=== PATIENT | male | born 1965 | race African-American/Black ===

== ENCOUNTER 2023-08-25 10:15 | Outpatient (RCR) | payer OTHER, SELFPAY ==
[2023-08-18 10:19] VITALS: BP 146/71; PULSE 75; RESP 16; TEMP 37.1; BMI 25.0
--- NOTE | 2023-08-18 14:33 | PCM.WC.HP ---
History of Present Illness Date of Service: 08/18/23 Chief Complaint: Chronic venous insufficiency, varicose veins with inflammation and ulceration, venous hypertension with inflammation and ulceration, venous stasis ulcerations?lower extremities bilaterally History of Wound: This is a 58-year-old male who presents with severe venous disease in his lower extremities bilaterally. He does not speak Salvadorean. He is accompanied by a friend, who serves as an linen keeper. Medical records have been obtained from Dr. Ender Ruiz, vascular surgeon, which have been reviewed. It appears as though the patient has a longstanding history of venous disease in his lower extremities bilaterally. He has recently developed ulcerations near the medial malleoli bilaterally. Bleeding occurred from the ulceration near the left medial malleolus. Patient presented to an emergency department, where the bleeding site was stitched . Patient was referred to Dr. Ender Ruiz, who evaluated the patient, and subsequently performed ultrasound-guided injection sclerotherapy near the ulceration near the left medial malleolus in an effort to ameliorate the high venous pressure responsible for the ulceration and bleeding. According to the records reviewed, Dr. 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 The patient is active. He sleeps on a flat mattress. He denies a history of deep vein thrombosis. Patient is otherwise generally healthy. [facility] Medical History Chronic venous insufficiency Varicose veins with ulcer and inflammation Venous hypertension, chronic, with ulcer and inflammation Venous stasis ulcer Vital Signs Vital Signs Vital Signs: 08/18/23 10:19 Temperature 98.8 F Temperature Source Temporal Pulse Rate 75 Respiratory Rate 16 Blood Pressure 146/71 H Blood Pressure Mean 96 Blood Pressure Source Monitor Blood Pressure Position Sitting Blood Pressure Location Right Arm Oxygen Delivery Method Room Air Weight Weight: 154 lb 5.177 oz Body Mass Index (BMI) 25.0 Physical Exam Const alert, oriented x3, no apparent distress, average body habitus and well nourished Constitutional Narrative: The patient is a relatively normal body habitus, with a BMI of 24.8. General Appearance: cooperative, comfortable, well kempt and well developed Orientation / Consciousness: awake, oriented to person, oriented to place and oriented to time Exam Limitations: no limitations HEENT normocephalic, head/scalp atraumatic and hearing grossly normal bilaterally Head and Scalp: normal to inspection, normocephalic and atraumatic External Ear: external ears normal Eyes PERRL and EOMs intact bilaterally General Eye: normal appearance of both eyes Neck full ROM Resp normal respiratory effort, normal air movement, no retractions and no use of accessory muscles Effort and Inspection: able to speak in complete sentences Extremity no calf tenderness General Extremity: Negative for clubbing or cyanosis Skin Wound Narrative: Hyperpigmentation is noted in the gaiter areas bilaterally. Small venous ulceration is noted near the right medial malleolus. A large venous ulceration is noted near the left medial malleolus. Dimensions of each ulceration are documented elsewhere. The ulceration near the right medial malleolus is generally pink and healthy in appearance. The ulceration of the left medial malleolus demonstrates a rather large amount of nonviable and necrotic tissue. There is no overt sign of infection or cellulitis. Scattered varicosities are noted in the lower extremities bilaterally. No significant swelling is noted in the lower extremities bilaterally. Pedal pulses are bilaterally palpable. Neuro oriented x3, CN's II-XII intact bilaterally, moves all extremities and no focal motor deficits Sensorium / Orientation: awake, alert, oriented to person, oriented to place and oriented to time Psych Appearance: grossly normal and appropriate Attitude: calm Activity / Motor Behavior: appropriate eye contact Speech: normal speech Mood & Affect: euthymic mood Thought Process: normal thought process Thought Content: normal thought content Attention / Concentration: attention grossly intact Debridement Note Debridement Note Wound debrided: Right medial malleolus Laterality: Right Type of Debridement: Excisional debridement Anesthesia Used: 5% Lidocaine Gel and Cetacaine Depth: Down to and including healthy tissue and in the subcutaneous layer Percentage of wound debrided: 100 Instrument Used: 5mm curette Tissue Removed: Bioburden Severity: Fat Layer Exposed Amount of bleeding with debridement: Mild Bleeding Controlled with: Compression and gauze Patient tolerated procedure: Patient tolerated procedure well Post-Debridement Measurements and Additional Note: Post-Debridement Measurements/Treatment DELVIN - Nurse 1 - General Ulcer Assessment Start: 08/18/23 10:18 Freq: Status: Active Protocol: KATHYA Activity Type Activity Date Activity User E-sign Co-sign Detail Recorded Client Recorded Date Recorded By Document 08/18/23 10:19 Desktop 08/18/23 10:44 GM 08/18/23 10:19 WC - Today's Visit Information Type of service Initial Visit Arrival Mode Ambulatory Transfer Assistance None Patient Identification Verified (Name & Yes ) Patient Requires Transmission-Based No Precautions Height and Weight Height 5 ft 5.75 in Weight 154 lb 5.177 oz Weight in Pounds 154.3 lbs Weight Measurement Method Estimated by Patient Body Mass Index (BMI) 25.0 BMI Classification Overweight BSA - Jermaine 1.79 Vital Signs Temperature (97.8 F-99.1 F) 98.8 F Temperature Source Temporal Pulse Rate (60-100) 75 Pulse Location Monitor Respiratory Rate (12-18) 16 Respiratory rate source Observation Oxygen Delivery Method Room Air Blood Pressure (90/60-120/80) 146/71 H Blood Pressure Mean 96 Source Monitor Position Sitting Blood Pressure Location Right Arm Pain Scale: 0-10 Numeric Is Patient Pain Free? Yes Lower Extremity Assessment/ Foot Assessment/ Toe Nail Assessment Right -Claudication Assessment Rest Pain -Posterior Tibial Palpable Yes -Posterior Tibial Doppler Multiphasic -Dorsalis Pedis Palpable Yes -Dorsalis Pedis Doppler Multiphasic -Extremity Color Hyperpigmented -Hair Growth on Legs Yes -Hair Growth on Toes Yes -Temperature of Extremity Warm -Capillary Refill Less than 3 Seconds -Dependent Rubor No -Blanched when Elevated No -Lipodermatosclerosis No -Other Deformity No -Prior Foot Ulcer No -Charcot Joint No -Prior Amputation No -Thick No -Discolored No -Deformed No -Improper Length & Hygeine No Left -Claudication Assessment Rest Pain -Posterior Tibial Palpable Yes -Posterior Tibial Doppler Multiphasic -Dorsalis Pedis Palpable Yes -Dorsalis Pedis Doppler Multiphasic -Extremity Color Hyperpigmented -Hair Growth on Legs Yes -Hair Growth on Toes Yes -Temperature of Extremity Warm -Capillary Refill Less than 3 Seconds -Blanched when Elevated No -Other Deformity No -Prior Foot Ulcer No -Charcot Joint No -Prior Amputation No -Thick No -Discolored No -Deformed No -Improper Length & Hygeine No Communication Assessment Preferred language Professional Advisor Required Yes Name/Type of Classroom Technology Coach family Able to Read Yes Able to Write Yes Right Hearing Abillity Normal Left Hearing Abillity Normal Visual Assistive Devices None Teaching Assessment Barriers to Learning Non Salvadorean Speaking Readiness To Learn Good Willingness to Engage in Self Management High Activies Readiness to Engage in Self Management High Activities Culture/Tenriism/Grinding Wheel Inspector Cultural/Tenriism Needs that may affect No Treatment Plan Would you allow our hospital collision technician to No meet you for the purpose of spiritual/ emotional support? Grinding Wheel Inspector to contact place of anglican No WC - Nurse 1 - General Ulcer Measurement Start: 08/18/23 10:18 Freq: Status: Active Protocol: Activity Type Activity Date Activity User E-sign Co-sign Detail Recorded Client Recorded Date Recorded By Document 08/18/23 10:19 Desktop 08/18/23 10:44 08/18/23 10:19 Wound Center Nurse 1 #1 L Medial Ankle -Current Size (cm) - Length 2.5 -Current Size (cm) - Width 3.5 -Current Size (cm) - Depth 0.2 -Total Square Cm 8.75 -Epithelialization Small 1-33% -Tunneling No -Undermining/Tunneling No -Circular Undermining No -Exudate Amt Medium -Exudate Type Yellow/Green -Wound Margin Distinct, Outline Attached -Granulation Amt Medium (34-66%) -Granulation Quality Red -Necrosis Amt Medium (34-66%) -Necrotic Tissue Type Adherent Slough -Structure Exposed N/A -Texture (Irina-wound Skin Appearance) Assessed -Moisture (Irina-wound Skin Appearance) Assessed -Color (Irina-wound Skin Appearance) Assessed -Temperature (Irina-wound Skin No Abnormality Appearance) (Pt Warm) -Tenderness on Palpation (Irina-wound Yes Skin Appearance) -Ulcer Cleansing Soap and Water -Foul Odor after Cleansing No -Anesthetic Used 5% Lidocaine Gel # 2 R Medial Ankle -Current Size (cm) - Length 2.0 -Current Size (cm) - Width 1.2 -Current Size (cm) - Depth 1.0 -Total Square Cm 2.40 -Epithelialization Small 1-33% -Tunneling No -Undermining/Tunneling No -Circular Undermining No -Exudate Amt Medium -Exudate Type Yellow/Green -Wound Margin Distinct, Outline Attached -Granulation Amt Medium (34-66%) -Slough/Fibrin Yes -Necrosis Amt Large (67-100%) -Texture (Irina-wound Skin Appearance) Assessed -Moisture (Irina-wound Skin Appearance) Assessed -Color (Irina-wound Skin Appearance) Assessed -Temperature (Irina-wound Skin No Abnormality Appearance) (Pt Warm) -Tenderness on Palpation (Irina-wound No Skin Appearance) -Ulcer Cleansing Soap and Water -Foul Odor after Cleansing No -Anesthetic Used 5% Lidocaine Gel Lower Limb Edema Present No Right Calf (cm) 36.5 Right Ankle (cm) 23 Left Calf (cm) 37 Left Ankle (cm) 21.5 WC - Nurse 2 - General Ulcer CM Notes Start: 08/18/23 10:18 Freq: Status: Active Protocol: Activity Type Activity Date Activity User E-sign Co-sign Detail Recorded Client Recorded Date Recorded By Document 08/18/23 11:48 PL [id number] 08/18/23 11:50 PL 08/18/23 11:48 Wound Center Nurse 2 #1 L Medial Ankle -Time 10:52 -Correct Patient Yes -Correct Side, Site, Position Yes -Correct Procedure Yes -Procedure Performed Yes -Type of Procedure Debridement -Clinical Debridement Subcutaneous -Tissue Removed Subcutaneous -Post Debridement (cm) - Length 2.5 -Post Debridement (cm) - Width 3.5 -Post Debridement (cm) - Depth 0.1 -Total Square (Post) (cm) 8.75 -Area of Debridement (cm) - Length 2.5 -Area of Debridement (cm) - Width 3.5 -Total Square (Area) (cm) 8.75 -Tunneling No -Undermining/Tunneling No -Circular Undermining No -Wound/Ulcer Outcome Not Healed -Ulcer Cleansing Rinsed/ Irrigated with Saline -Foul Odor after Cleansing No -Bioengineered Tissue No -Bleeding Controlled with Pressure -Treatment Response Procedure Tolerated Well -Debridement - Subq, 1st 20sq cm No # 2 R Medial Ankle -Time 10:52 -Correct Patient Yes -Correct Side, Site, Position Yes -Correct Procedure Yes -Procedure Performed Yes -Type of Procedure Debridement -Clinical Debridement Subcutaneous -Tissue Removed Subcutaneous -Post Debridement (cm) - Length 2.0 -Post Debridement (cm) - Width 1.2 -Post Debridement (cm) - Depth 0.1 -Total Square (Post) (cm) 2.40 -Area of Debridement (cm) - Length 2.0 -Area of Debridement (cm) - Width 1.2 -Total Square (Area) (cm) 2.40 -Tunneling No -Undermining/Tunneling No -Circular Undermining No -Wound/Ulcer Outcome Not Healed -Ulcer Cleansing Rinsed/ Irrigated with Saline -Foul Odor after Cleansing No -Bioengineered Tissue No -Bleeding Controlled with Pressure -Treatment Response Procedure Tolerated Well -Debridement - Subq, 1st 20sq cm Yes Pain Scale: 0-10 Numeric Is Patient Pain Free? Yes WC - Nurse 3 - General Ulcer D/C NN Start: 08/18/23 10:18 Freq: Status: Active Protocol: Activity Type Activity Date Activity User E-sign Co-sign Detail Recorded Client Recorded Date Recorded By Document 08/18/23 11:37 RB Desktop 08/18/23 11:41 RB 08/18/23 11:37 Wound Care Center Nurse 3 #1 L Medial Ankle -Ulcer Cleansing Wound Cleanser -Primary Dressing Applied Hysept ($) -Primary Dressing Covered/Secured with Dry Gauze,Dry Gauze & Roll Gauze,Secured with Tape # 2 R Medial Ankle -Ulcer Cleansing Wound Cleanser -Primary Dressing Applied C Hydrogel ($) -Primary Dressing Covered/Secured with Dry Gauze,Dry Gauze & Roll Gauze,Secured with Tape Right -Tubular Bandage Single Layer -Size of Tubigrip Used Size D -Size D ($) 1 Left -Tubular Bandage Single Layer -Size of Tubigrip Used Size D -Size D ($) 1 Treatment Response Procedure Tolerated Well Pain Scale: 0-10 Numeric Is Patient Pain Free? Yes WC - Visit Discharge Discharge Condition Stable Ambulatory Status Ambulatory Transportation Private Auto Medication Reconcilliation completed & No provided to patient/care provider Clinical Summary of Care Provided Yes Additional Wound Wound debrided: Let medial malleolus Laterality: Left Type of Debridement: Excisional debridement Anesthesia Used: 5% Lidocaine Gel and Cetacaine Depth: Down to and including healthy tissue and in the subcutaneous layer Percentage of wound debrided: 100 Instrument Used: 5mm curette Tissue Removed: Bioburden and nonviable/necrotic tissue Severity: Fat Layer Exposed Amount of bleeding with debridement: Mild Bleeding Controlled with: Compression and gauze Patient tolerated procedure: Patient tolerated procedure well Assessment/Plan Assessment/Plan (1) Chronic venous insufficiency: CODE(S): I87.2 - Venous insufficiency (chronic) (peripheral) (2) Varicose veins with ulcer and inflammation: CODE(S): I83.209 - Varicose veins of unspecified lower extremity with both ulcer of unspecified site and inflammation; L97.909 - Non-pressure chronic ulcer of unspecified part of unspecified lower leg with unspecified severity (3) Venous hypertension, chronic, with ulcer and inflammation: CODE(S): I87.339 - Chronic venous hypertension (idiopathic) with ulcer and inflammation of unspecified lower extremity (4) Venous stasis ulcer: CODE(S): I83.009 - Varicose veins of unspecified lower extremity with ulcer of unspecified site; L97.909 - Non-pressure chronic ulcer of unspecified part of unspecified lower leg with unspecified severity PLAN: Plan This is a generally healthy 58-year-old male who is of normal body habitus. He presented with a longstanding history of venous disease in his lower extremities. He has recently developed venous ulcerations near the medial malleoli bilaterally. The ulceration of the left medial malleolus has recently bled, prompting the patient to seek medical attention. Initially, in the emergency department setting, a suture was placed at the bleeding site to control bleeding from the area. The patient was then referred to Dr. Ender Ruiz, vascular surgeon, who performed ultrasound-guided injection sclerotherapy in the venous network about the ulceration in an effort to enhance ulcer healing and mitigate further bleeding episodes. Patient has been referred for management relative to the ulcerations near the medial malleoli bilaterally. A lengthy discussion has been undertaken with the patient, through his linen keeper, regarding the appropriate lifestyle measures for management of his venous disease. Leg elevation has been recommended. The patient's legs are to be elevated to heart level, or higher, as much as possible. This is to be accomplished even during daytime hours. The patient is to continue sleeping on a flat mattress at night. Prolonged idle sitting has been discouraged. Activity has been encouraged. The patient's body weight is normal. We are to implement compression by means of Tubigrip's 20 to 30 mmHg compression, which are to be worn daily. They are to be donned each morning, and doffed at bedtime. We are to implement a protocol of collagen hydrogel topically to the venous ulceration to the right medial malleolus. This will be applied on a daily basis. Dakin's-moistened gauze will be applied topically to the ulceration near the left medial malleolus. This will be applied on a daily basis. The patient has been instructed in the appropriate means of application The patient is to follow-up in 1 week. Total time: 50 minutes
[2023-08-25 10:47] VITALS: BP 139/76; PULSE 90; RESP 18; TEMP 37.1; BMI 25.0
--- NOTE | 2023-08-25 11:21 | HP.PCM_ITS ---
History of Present Illness Date of Service: 08/25/23 Chief Complaint: Chronic venous insufficiency, varicose veins with inflammation and ulceration, venous hypertension with inflammation and ulceration, venous stasis ulcerations?lower extremities bilaterally History of Wound: This is a 58-year-old male who presents with severe venous disease in his lower extremities bilaterally. He does not speak [place]. He is accompanied by a friend, who serves as an merchandising internship. Medical records have been obtained from Dr. Ender Ruiz, vascular surgeon, which have been reviewed. It appears as though the patient has a longstanding history of venous disease in his lower extremities bilaterally. He has recently developed ulcerations near the medial malleoli bilaterally. Bleeding occurred from the ulceration near the left medial malleolus. Patient presented to an emergency department, where the bleeding site was stitched . Patient was referred to Dr. Ender Ruiz, who evaluated the patient, and subsequently performed ultrasound- guided injection sclerotherapy near the ulceration near the left medial malleolus in an effort to ameliorate the high venous pressure responsible for the ulceration and bleeding. According to the records reviewed, Dr. 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 The patient is active. He sleeps on a flat allen ress. He denies a history of deep vein thrombosis. Patient is otherwise generally healthy. [facility] Medical History (Updated 08/25/23 @ 11:[address] Zeus Salazar MD) Chronic venous insufficiency Varicose veins with ulcer and inflammation Venous hypertension, chronic, with ulcer and inflammation Venous stasis ulcer Venous stasis ulcer of left ankle Vital Signs Vital Signs Vital Signs: 08/25/23 10:47 Temperature 98.7 F Temperature Source Temporal Pulse Rate 90 Respiratory Rate 18 Blood Pressure 139/76 H Blood Pressure Mean 97 Blood Pressure Source Monitor Oxygen Delivery Method Room Air Weight Weight: 154 lb 5.177 oz Body Mass Index (BMI) 25.0 Physical Exam Const alert, oriented x3, no apparent distress, average body habitus and well nourished Constitutional Narrative: The patient is a relatively normal body habitus, with a BMI of 24.8. General Appearance: cooperative, comfortable, well kempt and well developed Orientation / Consciousness: awake, oriented to person, oriented to place and oriented to time Exam Limitations: no limitations HEENT normocephalic, head/scalp atraumatic and hearing grossly normal bilaterally Head and Scalp: normal to inspection, normocephalic and atraumatic External Ear: external ears normal Eyes PERRL and EOMs intact bilaterally General Eye: normal appearance of both eyes Neck full ROM Resp normal respiratory effort, normal air movement, no retractions and no use of accessory muscles Effort and Inspection: able to speak in complete sentences Extremity no calf tenderness General Extremity: Negative for clubbing or cyanosis Skin Wound Narrative: Hyperpigmentation and lipodermatosclerosis are noted in the gaiter areas bilaterally. A small venous ulceration is noted near the right medial malleolus. A large venous ulceration is noted near the left medial malleolus. Dimensions of each ulceration are documented elsewhere. The ulcerations both demonstrate a large amount of nonviable and necrotic tissue. There is no significant surrounding erythema. Scattered varicosities are noted in the lower extremities bilaterally, most notably on the medial calves. No significant swelling is noted in the lower extremities bilaterally. Pedal pulses are bilaterally palpable. Neuro oriented x3, CN's II-XII intact bilaterally, moves all extremities, no focal motor deficits and no sensory deficits noted Sensorium / Orientation: awake, alert, oriented to person, oriented to place and oriented to time Psych Appearance: grossly normal and appropriate Attitude: calm Activity / Motor Behavior: appropriate eye contact Speech: normal speech Mood & Affect: euthymic mood Thought Process: normal thought process Thought Content: normal thought content Attention / Concentration: attention grossly intact Debridement Note Debridement Note Wound debrided: Right medial malleolus Laterality: Right Type of Debridement: Excisional debridement Anesthesia Used: 5% Lidocaine Gel and Cetacaine Depth: Down to and including healthy tissue and in the subcutaneous layer Percentage of wound debrided: 100 Instrument Used: 5mm curette Tissue Removed: Bioburden Severity: Fat Layer Exposed Amount of bleeding with debridement: Mild Bleeding Controlled with: Compression and gauze Patient tolerated procedure: Patient tolerated procedure well Post-Debridement Measurements and Additional Note: Post-Debridement Measurements/Treatment DELVIN - Nurse 1 - General Ulcer Assessment Start: 08/18/23 10:18 Freq: Status: Active Protocol: KATHYA Activity Type Activity Date Activity User E-sign Co-sign Detail Recorded Client Recorded Date Recorded By Document 08/18/23 10:19 GM Desktop 08/18/23 10:44 GM Document 08/25/23 10:47 MT Desktop 08/25/23 10:58 MT 08/18/23 08/25/23 10:19 10:47 WC - Today's Visit Information Type of service Initial Visit Follow-up Visit (Physician/S[employer]IOR [employer]ER [employer]NER ) Arrival Mode Ambulatory Ambulatory Transfer Assistance None Accompanied by friend Patient Identification Verified (Name & Yes Yes ) Patient Requires Transmission-Based No Precautions Height and Weight Height 5 ft 5.75 in Weight 154 lb 5.177 oz Weight in Pounds 154.3 lbs Weight Measurement Method Estimated by Patient Body Mass Index (BMI) 25.0 25.0 BMI Classification Overweight Overweight BSA - Jermaine 1.79 Vital Signs Temperature (97.8 F-99.1 F) 98.8 F 98.7 F Temperature Source Temporal Temporal Pulse Rate (60-100) 75 90 Pulse Location Monitor Monitor Respiratory Rate (12-18) 16 18 Respiratory rate source Observation Observation Oxygen Delivery Method Room Air Room Air Blood Pressure (90/60-120/80) 146/71 H 139/76 H Blood Pressure Mean 96 97 Source Monitor Monitor Position Sitting Blood Pressure Location Right Arm History Since Last Visit- (Skip if this is Patient's initial visit) Left Footwear Regular Shoe Right Footwear Regular Shoe Pain Scale: 0-10 Numeric Is Patient Pain Free? Yes Yes Lower Extremity Assessment/ Foot Assessment/ Toe Nail Assessment Right -Claudication Assessment Rest Pain -Posterior Tibial Palpable Yes -Posterior Tibial Doppler Multiphasic -Dorsalis Pedis Palpable Yes -Dorsalis Pedis Doppler Multiphasic -Extremity Color Hyperpigmented -Hair Growth on Legs Yes -Hair Growth on Toes Yes -Temperature of Extremity Warm -Capillary Refill Less than 3 Seconds -Dependent Rubor No -Blanched when Elevated No -Lipodermatosclerosis No -Other Deformity No -Prior Foot Ulcer No -Charcot Joint No -Prior Amputation No -Thick No -Discolored No -Deformed No -Improper Length & Hygeine No Left -Claudication Assessment Rest Pain -Posterior Tibial Palpable Yes -Posterior Tibial Doppler Multiphasic -Dorsalis Pedis Palpable Yes -Dorsalis Pedis Doppler Multiphasic -Extremity Color Hyperpigmented -Hair Growth on Legs Yes -Hair Growth on Toes Yes -Temperature of Extremity Warm -Capillary Refill Less than 3 Seconds -Blanched when Elevated No -Other Deformity No -Prior Foot Ulcer No -Charcot Joint No -Prior Amputation No -Thick No -Discolored No -Deformed No -Improper Length & Hygeine No Communication Assessment Preferred language Chin Strap Sewer Required Yes Name/Type of Automotive Accessory Installer family Able to Read Yes Able to Write Yes Right Hearing Abillity Normal Left Hearing Abillity Normal Visual Assistive Devices None Teaching Assessment Barriers to Learning Non [place] Speaking Readiness To Learn Good Willingness to Engage in Self Management High Activies Readiness to Engage in Self Management High Activities Culture/Oriental Orthodox/Manager Hair Cultural/Oriental Orthodox Needs that may affect No Treatment Plan Would you allow our [facility] bit sander to No meet you for the purpose of spiritual/ emotional support? Manager Hair to contact place of moravian No WC - Nurse 1 - General Ulcer Measurement Start: 08/18/23 10:18 Freq: Status: Active Protocol: Activity Type Activity Date Activity User E-sign Co-sign Detail Recorded Client Recorded Date Recorded By Document 08/18/23 10:19 Desktop 08/18/23 10:44 GM Document 08/25/23 10:47 CO Desktop 08/25/23 10:58 CO 08/18/23 08/25/23 10:19 10:47 Wound Center Nurse 1 #1 L Medial Ankle -Current Size (cm) - Length 2.5 5.2 -Current Size (cm) - Width 3.5 4.6 -Current Size (cm) - Depth 0.2 0.2 -Total Square Cm 8.75 23.92 -Photo Taken No -Epithelialization Small 1-33% -Tunneling No No -Undermining/Tunneling No No -Circular Undermining No No -Exudate Amt Medium Small -Exudate Type Yellow/Green Purulent -Wound Margin Distinct, Flat & Intact Outline Attached -Granulation Amt Medium (34-66%) Small (1-33%) -Granulation Quality Red Pale,[place] -Necrosis Amt Medium (34-66%) Large (67-100%) -Necrotic Tissue Type Adherent Slough Adherent Slough -Structure Exposed N/A -Texture (Irina-wound Skin Appearance) Assessed Assessed -Moisture (Irina-wound Skin Appearance) Assessed Assessed -Color (Irina-wound Skin Appearance) Assessed Assessed -Temperature (Irina-wound Skin No Abnormality No Abnormality Appearance) (Pt Warm) (Pt Warm) -Tenderness on Palpation (Irina-wound Yes No Skin Appearance) -Ulcer Cleansing Soap and Water Rinsed/ Irrigated with Saline -Foul Odor after Cleansing No No -Anesthetic Used 5% Lidocaine 5% Lidocaine Gel Gel # 2 R Medial Ankle -Current Size (cm) - Length 2.0 2 -Current Size (cm) - Width 1.2 1.5 -Current Size (cm) - Depth 1.0 0.1 -Total Square Cm 2.40 3.0 -Photo Taken No -Epithelialization Small 1-33% -Tunneling No No -Undermining/Tunneling No No -Circular Undermining No No -Exudate Amt Medium Small -Exudate Type Yellow/Green Sanguineous -Wound Margin Distinct, Flat & Intact Outline Attached -Granulation Amt Medium (34-66%) Small (1-33%) -Granulation Quality Pale,[place] -Slough/Fibrin Yes -Necrosis Amt Large (67-100%) Large (67-100%) -Necrotic Tissue Type Adherent Slough -Texture (Irina-wound Skin Appearance) Assessed Assessed -Moisture (Irina-wound Skin Appearance) Assessed Assessed -Color (Irina-wound Skin Appearance) Assessed Assessed -Temperature (Irina-wound Skin No Abnormality No Abnormality Appearance) (Pt Warm) (Pt Warm) -Tenderness on Palpation (Irina-wound No No Skin Appearance) -Ulcer Cleansing Soap and Water Soap and Water -Foul Odor after Cleansing No No -Anesthetic Used 5% Lidocaine 5% Lidocaine Gel Gel Lower Limb Edema Present No NA Right Calf (cm) 36.5 Right Ankle (cm) 23 Left Calf (cm) 37 Left Ankle (cm) 21.5 WC - Nurse 2 - General Ulcer CM Notes Start: 08/18/23 10:18 Freq: Status: Active Protocol: Activity Type Activity Date Activity User E-sign Co-sign Detail Recorded Client Recorded Date Recorded By Document 08/18/23 11:48 PL [id number] 08/18/23 11:50 PL 08/18/23 11:48 Wound Center Nurse 2 #1 L Medial Ankle -Time 10:52 -Correct Patient Yes -Correct Side, Site, Position Yes -Correct Procedure Yes -Procedure Performed Yes -Type of Procedure Debridement -Clinical Debridement Subcutaneous -Tissue Removed Subcutaneous -Post Debridement (cm) - Length 2.5 -Post Debridement (cm) - Width 3.5 -Post Debridement (cm) - Depth 0.1 -Total Square (Post) (cm) 8.75 -Area of Debridement (cm) - Length 2.5 -Area of Debridement (cm) - Width 3.5 -Total Square (Area) (cm) 8.75 -Tunneling No -Undermining/Tunneling No -Circular Undermining No -Wound/Ulcer Outcome Not Healed -Ulcer Cleansing Rinsed/ Irrigated with Saline -Foul Odor after Cleansing No -Bioengineered Tissue No -Bleeding Controlled with Pressure -Treatment Response Procedure Tolerated Well -Debridement - Subq, 1st 20sq cm No # 2 R Medial Ankle -Time 10:52 -Correct Patient Yes -Correct Side, Site, Position Yes -Correct Procedure Yes -Procedure Performed Yes -Type of Procedure Debridement -Clinical Debridement Subcutaneous -Tissue Removed Subcutaneous -Post Debridement (cm) - Length 2.0 -Post Debridement (cm) - Width 1.2 -Post Debridement (cm) - Depth 0.1 -Total Square (Post) (cm) 2.40 -Area of Debridement (cm) - Length 2.0 -Area of Debridement (cm) - Width 1.2 -Total Square (Area) (cm) 2.40 -Tunneling No -Undermining/Tunneling No -Circular Undermining No -Wound/Ulcer Outcome Not Healed -Ulcer Cleansing Rinsed/ Irrigated with Saline -Foul Odor after Cleansing No -Bioengineered Tissue No -Bleeding Controlled with Pressure -Treatment Response Procedure Tolerated Well -Debridement - Subq, 1st 20sq cm Yes Pain Scale: 0-10 Numeric Is Patient Pain Free? Yes WC - Nurse 3 - General Ulcer D/C NN Start: 08/18/23 10:18 Freq: Status: Active Protocol: Activity Type Activity Date Activity User E-sign Co-sign Detail Recorded Client Recorded Date Recorded By Document 08/18/23 11:37 RB Desktop 08/18/23 11:41 RB 08/18/23 11:37 Wound Care Center Nurse 3 #1 L Medial Ankle -Ulcer Cleansing Wound Cleanser -Primary Dressing Applied Hysept ($) -Primary Dressing Covered/Secured with Dry Gauze,Dry Gauze & Roll Gauze,Secured with Tape # 2 R Medial Ankle -Ulcer Cleansing Wound Cleanser -Primary Dressing Applied C Hydrogel ($) -Primary Dressing Covered/Secured with Dry Gauze,Dry Gauze & Roll Gauze,Secured with Tape Right -Tubular Bandage Single Layer -Size of Tubigrip Used Size D -Size D ($) 1 Left -Tubular Bandage Single Layer -Size of Tubigrip Used Size D -Size D ($) 1 Treatment Response Procedure Tolerated Well Pain Scale: 0-10 Numeric Is Patient Pain Free? Yes WC - Visit Discharge Discharge Condition Stable Ambulatory Status Ambulatory Transportation Private Auto Medication Reconcilliation completed & No provided to patient/care provider Clinical Summary of Care Provided Yes Additional Wound Wound debrided: Let medial malleolus Laterality: Left Type of Debridement: Excisional debridement Anesthesia Used: 5% Lidocaine Gel and Cetacaine Depth: Down to and including healthy tissue and in the subcutaneous layer Percentage of wound debrided: 100 Instrument Used: 5mm curette Tissue Removed: Bioburden and nonviable/necrotic tissue Severity: Fat Layer Exposed Amount of bleeding with debridement: Mild Bleeding Controlled with: Compression and gauze Patient tolerated procedure: Patient tolerated procedure well Assessment/Plan Assessment/Plan (1) Chronic venous insufficiency: CODE(S): I87.2 - Venous insufficiency (chronic) (peripheral) (2) Varicose veins with ulcer and inflammation: CODE(S): I83.209 - Varicose veins of unspecified lower extremity with both ulcer of unspecified site and inflammation; L97.909 - Non-pressure chronic ulcer of unspecified part of unspecified lower leg with unspecified severity (3) Venous hypertension, chronic, with ulcer and inflammation: CODE(S): I87.339 - Chronic venous hypertension (idiopathic) with ulcer and inflammation of unspecified lower extremity (4) Venous stasis ulcer: CODE(S): I83.009 - Varicose veins of unspecified lower extremity with ulcer of unspecified site; L97.909 - Non-pressure chronic ulcer of unspecified part of unspecified lower leg with unspecified severity QUALIFIERS: Venous stasis ulcer site: ankle Laterality: right Non-pressure ulcer stage: with fat layer exposed (5) Venous stasis ulcer of left ankle: CODE(S): I83.023 - Varicose veins of left lower extremity with ulcer of ankle; L97.329 - Non-pressure chronic ulcer of left ankle with unspecified severity QUALIFIERS: Non-pressure ulcer stage: with fat layer exposed PLAN: Plan This is a generally healthy 58-year-old male who is of normal body habitus. He presented with a longstanding history of venous disease in his lower extremities. He has recently developed venous ulcerations near the medial malleoli bilaterally. The ulceration of the left medial malleolus has recently bled, prompting the patient to seek medical attention. Initially, in the emerge ncy department setting, a suture was placed at the bleeding site to control bleeding from the area. The patient was then referred to Dr. Ender Ruiz, vascular surgeon, who performed ultrasound-guided injection sclerotherapy in the venous network about the ulceration in an effort to enhance ulcer healing and mitigate further bleeding episodes. The patient has been referred for management relative to the ulcerations near the medial malleoli bilaterally. A lengthy discussion has been undertaken with the patient, through his merchandising internship, regarding the appropriate lifestyle measures for management of his venous disease. Leg elevation has been recommended. The patient's legs are to be elevated to heart level, or higher, as much as possible. This is to be accomplished even during daytime hours. The patient is to continue sleeping on a flat mattress at night. Prolonged idle sitting has been discouraged. Activity has been encouraged. The patient's body weight is normal. We are to continue compression by means of Tubigrip's 20 to 30 mmHg compression, which are to be worn daily. The patient has been provided a prescription for graduated compression stockings of 20 to 30 mmHg, knee-high length. Once these have been obtained at a local medical supply store, these are to be worn daily. The patient claims to have a current pair of compression stockings, and has been advised to bring with him to his next appointment so they can be evaluated as to their appropriateness for his current needs. We are to transition to the use of collagenase Santyl topically to each of the ulcerations, which will be applied on a daily basis topically. The patient has been given a prescription for the collagenase Santyl. He has been instructed in the appropriate means of application. A coupon has been provided to mitigate the high cost of the product. Swab cultures have been obtained of the left medial ankle ulceration, for both aerobic and anaerobic bacterial growth. Results of the cultures will be awaited, with response predicated upon those results. The patient is to follow-up in 1 week. The patient has been encouraged to elevate his legs is much as possible. He typically works 10 hours/day, typically 5 days/week. These long hours in a standing position are felt to be detrimental to the healing process, as his bilateral lower extremity ulcerations appear to be due to his longstanding venous disease. Total time: 28 minutes
== END 2023-08-27 23:59 | disposition home or self-care (01) ==
LOC: WC 10:15
PROVIDERS: Referring Provider Surgery Vascular Surgery; Visit Provider Surgery
DX: I83.223 Varicose veins of left lower extremity with both ulcer of ankle and inflammation (principal); L97.312 Non-pressure chronic ulcer of right ankle with fat layer exposed; L97.322 Non-pressure chronic ulcer of left ankle with fat layer exposed; I83.213 Varicose veins of right lower extremity with both ulcer of ankle and inflammation
CPT/HCPCS: 11042; 11045; 87070; 87075; 87077; 87186; 87205; 99213; G0463

== ENCOUNTER 2023-09-23 10:15 | Outpatient (RCR) | payer OTHER, SELFPAY ==
[2023-08-28 00:26] VITALS: BP 139/76; PULSE 90; RESP 18; TEMP 37.1; BMI 25.0
[2023-09-01 11:02] VITALS: BP 152/79; PULSE 76; RESP 16; TEMP 36.4; BMI 25.0
--- NOTE | 2023-09-01 12:57 | HP.PCM_ITS ---
History of Present Illness Date of Service: 09/01/23 Chief Complaint: Chronic venous insufficiency, varicose veins with inflammation and ulceration, venous hypertension with inflammation and ulceration, venous stasis ulcerations?lower extremities bilaterally History of Wound: This is a 58-year-old male who presents with severe venous disease in his lower extremities bilaterally. He does not speak Italian. He is accompanied by a friend, who serves as an certified court interpreter. Medical records have been obtained from Dr. Ender Ruiz, vascular surgeon, which have been reviewed. It appears as though the patient has a longstanding history of venous disease in his lower extremities bilaterally. He has recently developed ulcerations near the medial malleoli bilaterally. Bleeding occurred from the ulceration near the left medial malleolus. Patient presented to an emergency department, where the bleeding site was stitched . Patient was referred to Dr. Ender Ruiz, who evaluated the patient, and subsequently performed ultrasound- guided injection sclerotherapy near the ulceration near the left medial malleolus in an effort to ameliorate the high venous pressure responsible for the ulceration and bleeding. According to the records reviewed, Dr. 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 The patient is active. He sleeps on a flat allen ress. He denies a history of deep vein thrombosis. Patient is otherwise generally healthy. [facility] Medical History Chronic venous insufficiency Varicose veins with ulcer and inflammation Venous hypertension, chronic, with ulcer and inflammation Venous stasis ulcer Venous stasis ulcer of left ankle Vital Signs Vital Signs Vital Signs: 09/01/23 11:02 Temperature 97.6 F L Temperature Source Temporal Pulse Rate 76 Respiratory Rate 16 Blood Pressure 152/79 H Blood Pressure Mean 103 Blood Pressure Source Monitor Blood Pressure Position Sitting Blood Pressure Location Left Arm Oxygen Delivery Method Room Air Weight Weight: 154 lb 5.177 oz Body Mass Index (BMI) 25.0 Physical Exam Const alert, oriented x3, no apparent distress, average body habitus and well nourished Constitutional Narrative: The patient is a relatively normal body habitus, with a BMI of 24.8. General Appearance: cooperative, comfortable, well kempt and well developed Orientation / Consciousness: awake, oriented to person, oriented to place and oriented to time Exam Limitations: no limitations HEENT normocephalic, head/scalp atraumatic and hearing grossly normal bilaterally Head and Scalp: normal to inspection, normocephalic and atraumatic External Ear: external ears normal Eyes PERRL and EOMs intact bilaterally General Eye: normal appearance of both eyes Neck full ROM Resp normal respiratory effort, normal air movement, no retractions and no use of accessory muscles Effort and Inspection: able to speak in complete sentences Extremity no calf tenderness General Extremity: Negative for clubbing or cyanosis Skin Wound Narrative: Hyperpigmentation and lipodermatosclerosis are noted in the gaiter areas bilaterally. A small venous ulceration is noted near the right medial malleolus. A large venous ulceration is noted near the left medial malleolus. Dimensions of each ulceration are documented elsewhere. The ulcerations both demonstrate a large amount of nonviable and necrotic tissue. There is no significant surrounding erythema. There has been no significant improvement since the week prior. Scattered varicosities are noted in the lower extremities bilaterally, most notably on the medial calves. No significant swelling is noted in the lower extremities bilaterally. Pedal pulses are bilaterally palpable. Neuro oriented x3, CN's II-XII intact bilaterally, moves all extremities, no focal motor deficits and no sensory deficits noted Sensorium / Orientation: awake, alert, oriented to person, oriented to place and oriented to time Psych Appearance: grossly normal and appropriate Attitude: calm Activity / Motor Behavior: appropriate eye contact Speech: normal speech Mood & Affect: euthymic mood Thought Process: normal thought process Thought Content: normal thought content Attention / Concentration: attention grossly intact Debridement Note Debridement Note Wound debrided: Right medial malleolus Laterality: Right Type of Debridement: Excisional debridement Anesthesia Used: 5% Lidocaine Gel and Cetacaine Depth: Down to and including healthy tissue and in the subcutaneous layer Percentage of wound debrided: 100 Instrument Used: 5mm curette Tissue Removed: Bioburden Severity: Fat Layer Exposed Amount of bleeding with debridement: Mild Bleeding Controlled with: Compression and gauze Patient tolerated procedure: Patient tolerated procedure well Post-Debridement Measurements and Additional Note: Post-Debridement Measurements/Treatment DELVIN - Nurse 1 - General Ulcer Assessment Start: 09/01/23 11:02 Freq: Status: Active Protocol: KATHYA Activity Type Activity Date Activity User E-sign Co-sign Detail Recorded Client Recorded Date Recorded By Document 09/01/23 11:02 [employer] 09/01/23 11:12 09/01/23 11:02 WC - Today's Visit Information Type of service Follow-up Visit (Physician/BOARD LAYER ) Arrival Mode Ambulatory Transfer Assistance None Accompanied by friend Patient Identification Verified (Name & Yes ) Patient Requires Transmission-Based No Precautions Safety Precautions NA Height and Weight Body Mass Index (BMI) 25.0 BMI Classification Overweight Vital Signs Temperature (97.8 F-99.1 F) 97.6 F L Temperature Source Temporal Pulse Rate (60-100) 76 Pulse Location Monitor Respiratory Rate (12-18) 16 Respiratory rate source Observation Oxygen Delivery Method Room Air Blood Pressure (90/60-120/80) 152/79 H Blood Pressure Mean 103 Source Monitor Position Sitting Blood Pressure Location Left Arm History Since Last Visit- (Skip if this is Patient's initial visit) Have you changed medications since your No last visit? Any new allergies or adverse reactions No Had a fall/change in ADL's that may No increase risk of falls Signs or symptoms of abuse and/or No neglect since last visit Have you been in the hospital since your No last visit? Has dressing in place as prescribed Yes Has compression in place as prescribed N/A Has offloadiing in place as prescribed N/A Experienced any changes in pain level or No management Left Footwear Regular Shoe Right Footwear Regular Shoe Pain Scale: 0-10 Numeric Is Patient Pain Free? Yes - Nurse 1 - General Ulcer Measurement Start: 09/01/23 11:02 Freq: Status: Active Protocol: Activity Type Activity Date Activity User E-sign Co-sign Detail Recorded Client Recorded Date Recorded By Document 09/01/23 11:02 [email or web address] 09/01/23 11:12 09/01/23 11:02 Wound Center Nurse 1 #1 L Medial Ankle -Combined with other wound No -Current Size (cm) - Length 5.7 -Current Size (cm) - Width 4.4 -Current Size (cm) - Depth 0.1 -Total Square Cm 25.08 -Photo Taken No -Tunneling No -Undermining/Tunneling No -Circular Undermining No -Exudate Amt Medium -Exudate Type Serosanguineous -Wound Margin Flat & Intact -Granulation Amt None Present (0 %) -Granulation Quality N/A -Slough/Fibrin Yes -Necrosis Amt Large (67-100%) -Necrotic Tissue Type Adherent Slough -Structure Exposed N/A -Texture (Irina-wound Skin Appearance) Assessed, Localized Edema -Moisture (Irina-wound Skin Appearance) Assessed -Color (Irina-wound Skin Appearance) Assessed, Hemosiderin Staining -Temperature (Irina-wound Skin No Abnormality Appearance) (Pt Warm) -Tenderness on Palpation (Irina-wound No Skin Appearance) -Ulcer Cleansing Soap and Water -Foul Odor after Cleansing No -Anesthetic Used 4% Lidocaine Solution,5% Lidocaine Gel # 2 R Medial Ankle -Combined with other wound No -Current Size (cm) - Length 2.2 -Current Size (cm) - Width 1.5 -Current Size (cm) - Depth 0.1 -Total Square Cm 3.30 -Photo Taken No -Epithelialization None Present -Tunneling No -Undermining/Tunneling No -Circular Undermining No -Exudate Amt Medium -Exudate Type Serosanguineous -Wound Margin Flat & Intact -Granulation Amt None Present (0 %) -Granulation Quality N/A -Slough/Fibrin Yes -Necrosis Amt Large (67-100%) -Necrotic Tissue Type Adherent Slough -Structure Exposed N/A -Texture (Irina-wound Skin Appearance) Assessed, Localized Edema -Moisture (Irina-wound Skin Appearance) Assessed -Color (Irina-wound Skin Appearance) Assessed, Hemosiderin Staining Lower Limb Edema Present Yes Right Calf (cm) 36.5 Right Ankle (cm) 22.0 Left Calf (cm) 37.0 Left Ankle (cm) 23.5 WC - Nurse 2 - General Ulcer CM Notes Start: 09/01/23 11:02 Freq: Status: Active Protocol: Activity Type Activity Date Activity User E-sign Co-sign Detail Recorded Client Recorded Date Recorded By Document 09/01/23 12:54 PL [id number] 09/01/23 12:56 PL 09/01/23 12:54 Wound Center Nurse 2 #1 L Medial Ankle -Time 11:21 -Correct Patient Yes -Correct Side, Site, Position Yes -Correct Procedure Yes -Procedure Performed Yes -Type of Procedure Debridement -Clinical Debridement Subcutaneous -Tissue Removed Subcutaneous -Post Debridement (cm) - Length 5.7 -Post Debridement (cm) - Width 4.4 -Post Debridement (cm) - Depth 0.1 -Total Square (Post) (cm) 25.08 -Area of Debridement (cm) - Length 5.7 -Area of Debridement (cm) - Width 4.4 -Total Square (Area) (cm) 25.08 -Tunneling No -Undermining/Tunneling No -Circular Undermining No -Wound/Ulcer Outcome Not Healed -Ulcer Cleansing Rinsed/ Irrigated with Saline -Foul Odor after Cleansing No -Bioengineered Tissue No -Bleeding Controlled with Pressure -Treatment Response Procedure Tolerated Well -Debridement - Subq, 1st 20sq cm No # 2 R Medial Ankle -Time 11:21 -Correct Patient Yes -Correct Side, Site, Position Yes -Correct Procedure Yes -Procedure Performed Yes -Type of Procedure Debridement -Clinical Debridement Subcutaneous -Tissue Removed Subcutaneous -Post Debridement (cm) - Length 2.2 -Post Debridement (cm) - Width 1.5 -Post Debridement (cm) - Depth 0.1 -Total Square (Post) (cm) 3.30 -Area of Debridement (cm) - Length 2.2 -Area of Debridement (cm) - Width 1.5 -Total Square (Area) (cm) 3.30 -Tunneling No -Undermining/Tunneling No -Circular Undermining No -Wound/Ulcer Outcome Not Healed -Ulcer Cleansing Rinsed/ Irrigated with Saline -Foul Odor after Cleansing No -Bioengineered Tissue No -Bleeding Controlled with Pressure -Treatment Response Procedure Tolerated Well -Debridement - Subq, 1st 20sq cm Yes -Debridement, SubQ, ea addt'l 20sq cm 1 or part thereof Pain Scale: 0-10 Numeric Is Patient Pain Free? Yes - Nurse 3 - General Ulcer D/C NN Start: 09/01/23 11:02 Freq: Status: Active Protocol: Activity Type Activity Date Activity User E-sign Co-sign Detail Recorded Client Recorded Date Recorded By Document 09/01/23 11:38 RB Desktop 09/01/23 11:41 RB 09/01/23 11:38 Wound Care Center Nurse 3 #1 L Medial Ankle -Primary Dressing Applied C Hydrogel ($) -Primary Dressing Covered/Secured with Dry Gauze,Dry Gauze & Roll Gauze,Secured with Tape # 2 R Medial Ankle -Ulcer Cleansing Rinsed/ Irrigated with Saline -Other Dressing hydrogel -Primary Dressing Covered/Secured with Dry Gauze,Dry Gauze & Roll Gauze,Secured with Tape Right -Tubular Bandage Single Layer -Size of Tubigrip Used Size D -Size D ($) 1 Left -Tubular Bandage Single Layer -Size of Tubigrip Used Size D -Size D ($) 1 Treatment Response Procedure Tolerated Well Pain Scale: 0-10 Numeric Is Patient Pain Free? Yes WC - Visit Discharge Discharge Condition Stable Ambulatory Status Ambulatory Transportation Private Auto Medication Reconcilliation completed & No provided to patient/care provider Clinical Summary of Care Provided Yes Additional Wound Wound debrided: Let medial malleolus Laterality: Left Type of Debridement: Excisional debridement Anesthesia Used: 5% Lidocaine Gel and Cetacaine Depth: Down to and including healthy tissue and in the subcutaneous layer Percentage of wound debrided: 100 Instrument Used: 5mm curette Tissue Removed: Bioburden and nonviable/necrotic tissue Severity: Fat Layer Exposed Amount of bleeding with debridement: Mild Bleeding Controlled with: Compression and gauze Patient tolerated procedure: Patient tolerated procedure well Assessment/Plan Assessment/Plan (1) Chronic venous insufficiency: CODE(S): I87.2 - Venous insufficiency (chronic) (peripheral) (2) Varicose veins with ulcer and inflammation: CODE(S): I83.209 - Varicose veins of unspecified lower extremity with both ulcer of unspecified site and inflammation; L97.909 - Non-pressure chronic ulcer of unspecified part of unspecified lower leg with unspecified severity (3) Venous hypertension, chronic, with ulcer and inflammation: CODE(S): I87.339 - Chronic venous hypertension (idiopathic) with ulcer and inflammation of unspecified lower extremity QUALIFIERS: Laterality: bilateral Qualified Code(s): I87.333 - Chronic venous hypertension (idiopathic) with ulcer and inflammation of bilateral lower extremity (4) Venous stasis ulcer: CODE(S): I83.009 - Varicose veins of unspecified lower extremity with ulcer of unspecified site; L97.909 - Non-pressure chronic ulcer of unspecified part of unspecified lower leg with unspecified severity QUALIFIERS: Venous stasis ulcer site: ankle Laterality: right Non-pressure ulcer stage: with fat layer exposed (5) Venous stasis ulcer of left ankle: CODE(S): I83.023 - Varicose veins of left lower extremity with ulcer of ankle; L97.329 - Non-pressure chronic ulcer of left ankle with unspecified severity QUALIFIERS: Non-pressure ulcer stage: with fat layer exposed Varicose vein presence: with varicose veins Qualified Code(s): I83.023 - Varicose veins of left lower extremity with ulcer of ankle; L97.322 - Non- pressure chronic ulcer of left ankle with fat layer exposed PLAN: Plan This is a generally healthy 58-year-old male who is of normal body habitus. He presented with a longstanding history of venous disease in his lower extremities. He has recently developed venous ulcerations near the medial malleoli bilaterally. The ulceration of the left medial malleolus has recently bled, prompting the patient to seek medical attention. Initially, in the emergency department setting, a suture was placed at the bleeding site to control bleeding from the area. The patient was then referred to Dr. Ender Ruiz, vascular surgeon, who performed ultrasound-guided injection sclerotherapy in the venous network about the ulceration in an effort to enhance ulcer healing and mitigate further bleeding episodes. The patient has been referred for management relative to the ulcerations near the medial malleoli bilaterally. A lengthy discussion has been undertaken with the patient, through his certified court interpreter, regarding the appropriate lifestyle measures for management of his venous disease. Leg elevation has been recommended. The patient's legs are to be elevated to heart level, or higher, as much as possible. This is to be accomplished even during daytime hours. The patient is to continue sleeping on a flat mattress at night. Prolonged idle sitting has been discouraged. Activity has been encouraged. The patient's body weight is normal. We are to continue compression by means of Tubigrip's 20 to 30 mmHg compression, which are to be worn daily. The patient has been provided a prescription for graduated compression stockings of 20 to 30 mmHg, knee-high length, which have been ordered, and are awaited. Once these have been obtained at a local medical supply store, these are to be worn daily. We are to transition to the use of collagenase Santyl topically to each of the ulcerations, which will be applied on a daily basis topically. The patient has been given a prescription for the collagenase Santyl. He has been instructed in the appropriate means of application. A coupon has been provided to mitigate the high cost of the product. The patient lost the coupon, so there has been a delay in obtaining the collagenase Santyl. Once obtained, it will be applied topically on a daily basis. Swab cultures have been obtained of the left medial ankle ulceration, for both aerobic and anaerobic bacterial growth. Results have been reviewed, and are positive for Pseudomonas aeruginosa. Based upon sensitivity results, the patient has been prescribed Cipro 500 mg p.o. twice daily for 10 days. Due to issues at the patient's local pharmacy, he continues to await the filling of this prescription. He has been encouraged to obtain the antibiotic, and to initiate without delay. The patient is to follow-up in 1 week. The patient has been encouraged to elevate his legs is much as possible. He typically works 10 hours/day, typically 5 days/week. These long hours in a standing position are felt to be detrimental to the healing process, as his bilateral lower extremity ulcerations appear to be due to his venous disease. Total time: 26 minutes
[2023-09-08 09:45] VITALS: BP 164/64; PULSE 83; RESP 18; TEMP 36.4; BMI 25.0
--- NOTE | 2023-09-08 11:31 | HP.PCM_ITS ---
History of Present Illness Date of Service: 09/08/23 Chief Complaint: Chronic venous insufficiency, varicose veins with inflammation and ulceration, venous hypertension with inflammation and ulceration, venous stasis ulcerations?lower extremities bilaterally History of Wound: This is a 58-year-old male who presented with severe venous disease in his lower extremities bilaterally. He does not speak Armenian. He was accompanied by a friend, who serves as an inventory control assistant. Medical records have been obtained from Dr. Ender Ruiz, vascular surgeon, which have been reviewed. It appears as though the patient has a longstanding history of venous disease in his lower extremities bilaterally. He has recently developed ulcerations near the medial malleoli bilaterally. Bleeding occurred from the ulceration near the left medial malleolus. Patient presented to an emergency department, where the bleeding site was stitched . Patient was referred to Dr. Ender Ruiz, who evaluated the patient, and subsequently performed ultrasound- guided injection sclerotherapy near the ulceration near the left medial malleolus in an effort to ameliorate the high venous pressure responsible for the ulceration and bleeding. According to the records reviewed, Dr. 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 The patient is active. He sleeps on a flat ma ttress. He denies a history of deep vein thrombosis. Patient is otherwise generally healthy. [facility] Medical History Chronic venous insufficiency Varicose veins with ulcer and inflammation Venous hypertension, chronic, with ulcer and inflammation Venous stasis ulcer Venous stasis ulcer of left ankle Vital Signs Vital Signs Vital Signs: 09/08/23 09:45 Temperature 97.6 F L Temperature Source Temporal Pulse Rate 83 Respiratory Rate 18 Blood Pressure 164/64 H Blood Pressure Mean 97 Blood Pressure Source Monitor Blood Pressure Position Semi-Fowlers Blood Pressure Location Left Arm Weight Weight: 154 lb 5.177 oz Body Mass Index (BMI) 25.0 Physical Exam Const alert, oriented x3, no apparent distress, average body habitus and well nourished Constitutional Narrative: The patient is a relatively normal body habitus, with a BMI of 24.8. General Appearance: cooperative, comfortable, well kempt and well developed Orientation / Consciousness: awake, oriented to person, oriented to place and oriented to time Exam Limitations: no limitations HEENT normocephalic, head/scalp atraumatic and hearing grossly normal bilaterally Head and Scalp: normal to inspection, normocephalic and atraumatic External Ear: external ears normal Eyes PERRL and EOMs intact bilaterally General Eye: normal appearance of both eyes Neck full ROM Resp normal respiratory effort, normal air movement, no retractions and no use of accessory muscles Effort and Inspection: able to speak in complete sentences Extremity no calf tenderness General Extremity: Negative for clubbing or cyanosis Skin Wound Narrative: Hyperpigmentation and lipodermatosclerosis are noted in the gaiter areas bilaterally. A small venous ulceration is noted near the right medial malleolus. A large venous ulceration is noted near the left medial malleolus. Dimensions of each ulceration are documented elsewhere. The ulcerations both demonstrate a moderate amount of nonviable and necrotic tissue. However, there has been improvement over the last several weeks. There is no significant surrounding erythema. Scattered varicosities are noted in the lower extremities bilaterally, most notably on the medial calves. No significant swelling is noted in the lower extremities bilaterally. Pedal pulses are bilaterally palpable. Neuro oriented x3, CN's II-XII intact bilaterally, moves all extremities, no focal motor deficits and no sensory deficits noted Sensorium / Orientation: awake, alert, oriented to person, oriented to place and oriented to time Psych Appearance: grossly normal and appropriate Attitude: calm Activity / Motor Behavior: appropriate eye contact Speech: normal speech Mood & Affect: euthymic mood Thought Process: normal thought process Thought Content: normal thought content Attention / Concentration: attention grossly intact Debridement Note Debridement Note Wound debrided: Right medial malleolus Laterality: Right Type of Debridement: Excisional debridement Anesthesia Used: 5% Lidocaine Gel and Cetacaine Depth: Down to and including healthy tissue and in the subcutaneous layer Percentage of wound debrided: 100 Instrument Used: 5mm curette Tissue Removed: Bioburden Severity: Fat Layer Exposed Amount of bleeding with debridement: Mild Bleeding Controlled with: Compression and gauze Patient tolerated procedure: Patient tolerated procedure well Post-Debridement Measurements and Additional Note: Post-Debridement Measurements/Treatment DELVIN - Nurse 1 - General Ulcer Assessment Start: 09/01/23 11:02 Freq: Status: Active Protocol: KATHYA Activity Type Activity Date Activity User E-sign Co-sign Detail Recorded Client Recorded Date Recorded By Document 09/01/23 11:02 MW Desktop 09/01/23 11:12 MW Document 09/08/23 09:45 RB Desktop 09/08/23 09:47 RB 09/01/23 09/08/23 11:02 09:45 - Today's Visit Information Type of service Follow-up Visit Follow-up Visit (Physician/LARGE ANIMAL HUSBANDRY TECHNICIAN (Physician/LARGE ANIMAL HUSBANDRY TECHNICIAN ) ) Arrival Mode Ambulatory Ambulatory Transfer Assistance None None Accompanied by friend Patient Identification Verified (Name & Yes Yes ) Patient Requires Transmission-Based No No Precautions Safety Precautions NA Height and Weight Body Mass Index (BMI) 25.0 25.0 BMI Classification Overweight Overweight Vital Signs Temperature (97.8 F-99.1 F) 97.6 F L 97.6 F L Temperature Source Temporal Temporal Pulse Rate (60-100) 76 83 Pulse Location Monitor Monitor Respiratory Rate (12-18) 16 18 Respiratory rate source Observation Observation Oxygen Delivery Method Room Air Blood Pressure (90/60-120/80) 152/79 H 164/64 H Blood Pressure Mean 103 97 Source Monitor Monitor Position Sitting Semi-Fowlers Blood Pressure Location Left Arm Left Arm History Since Last Visit- (Skip if this is Patient's initial visit) Have you changed medications since your No No last visit? Any new allergies or adverse reactions No No Had a fall/change in ADL's that may No No increase risk of falls Signs or symptoms of abuse and/or No No neglect since last visit Have you been in the hospital since your No No last visit? Has dressing in place as prescribed Yes Yes Has compression in place as prescribed N/A Yes Has offloadiing in place as prescribed N/A No Experienced any changes in pain level or No No management Left Footwear Regular Shoe Right Footwear Regular Shoe Pain Scale: 0-10 Numeric Is Patient Pain Free? Yes No - Nurse 1 - General Ulcer Measurement Start: 09/01/23 11:02 Freq: Status: Active Protocol: Activity Type Activity Date Activity User E-sign Co-sign Detail Recorded Client Recorded Date Recorded By Document 09/01/23 11:02 MW Desktop 09/01/23 11:12 MW Document 09/08/23 09:45 RB Desktop 09/08/23 09:47 RB 09/01/23 09/08/23 11:02 09:45 Wound Center Nurse 1 #1 L Medial Ankle -Combined with other wound No No -Current Size (cm) - Length 5.7 5 -Current Size (cm) - Width 4.4 3.5 -Current Size (cm) - Depth 0.1 0.1 -Total Square Cm 25.08 17.5 -Photo Taken No -Tunneling No No -Undermining/Tunneling No No -Circular Undermining No No -Exudate Amt Medium Medium -Exudate Type Serosanguineous Serosanguineous -Wound Margin Flat & Intact Distinct, Outline Attached -Granulation Amt None Present (0 Medium (34-66%) %) -Granulation Quality N/A [place] -Slough/Fibrin Yes Yes -Necrosis Amt Large (67-100%) Medium (34-66%) -Necrotic Tissue Type Adherent Slough Adherent Slough -Structure Exposed N/A N/A -Texture (Irina-wound Skin Appearance) Assessed, Assessed Localized Edema -Moisture (Irina-wound Skin Appearance) Assessed Assessed -Color (Irina-wound Skin Appearance) Assessed, Hemosiderin Hemosiderin Staining Staining -Temperature (Irina-wound Skin No Abnormality No Abnormality Appearance) (Pt Warm) (Pt Warm) -Tenderness on Palpation (Irina-wound No No Skin Appearance) -Ulcer Cleansing Soap and Water Wound Cleanser -Foul Odor after Cleansing No No -Anesthetic Used 4% Lidocaine 4% Lidocaine Solution,5% Solution,5% Lidocaine Gel Lidocaine Gel # 2 R Medial Ankle -Combined with other wound No No -Current Size (cm) - Length 2.2 2.3 -Current Size (cm) - Width 1.5 1.5 -Current Size (cm) - Depth 0.1 0.2 -Total Square Cm 3.30 3.45 -Photo Taken No -Epithelialization None Present -Tunneling No No -Undermining/Tunneling No No -Circular Undermining No No -Exudate Amt Medium Medium -Exudate Type Serosanguineous Serosanguineous -Wound Margin Flat & Intact Distinct, Outline Attached -Granulation Amt None Present (0 Medium (34-66%) %) -Granulation Quality N/A Hyper- granulation -Slough/Fibrin Yes Yes -Necrosis Amt Large (67-100%) Large (67-100%) -Necrotic Tissue Type Adherent Slough Adherent Slough -Structure Exposed N/A N/A -Texture (Irina-wound Skin Appearance) Assessed, Assessed Localized Edema -Moisture (Irina-wound Skin Appearance) Assessed Assessed -Color (Irina-wound Skin Appearance) Assessed, Hemosiderin Hemosiderin Staining Staining -Temperature (Irina-wound Skin No Abnormality Appearance) (Pt Warm) -Tenderness on Palpation (Irina-wound No Skin Appearance) -Ulcer Cleansing Wound Cleanser -Foul Odor after Cleansing No -Anesthetic Used 4% Lidocaine Solution,5% Lidocaine Gel Lower Limb Edema Present Yes Yes Right Calf (cm) 36.5 36.5 Right Ankle (cm) 22.0 22.7 Left Calf (cm) 37.0 37 Left Ankle (cm) 23.5 22 WC - Nurse 2 - General Ulcer CM Notes Start: 09/01/23 11:02 Freq: Status: Active Protocol: Activity Type Activity Date Activity User E-sign Co-sign Detail Recorded Client Recorded Date Recorded By Document 09/01/23 12:54 PL [id number] 09/01/23 12:56 PL 09/01/23 12:54 Wound Center Nurse 2 #1 L Medial Ankle -Time 11:21 -Correct Patient Yes -Correct Side, Site, Position Yes -Correct Procedure Yes -Procedure Performed Yes -Type of Procedure Debridement -Clinical Debridement Subcutaneous -Tissue Removed Subcutaneous -Post Debridement (cm) - Length 5.7 -Post Debridement (cm) - Width 4.4 -Post Debridement (cm) - Depth 0.1 -Total Square (Post) (cm) 25.08 -Area of Debridement (cm) - Length 5.7 -Area of Debridement (cm) - Width 4.4 -Total Square (Area) (cm) 25.08 -Tunneling No -Undermining/Tunneling No -Circular Undermining No -Wound/Ulcer Outcome Not Healed -Ulcer Cleansing Rinsed/ Irrigated with Saline -Foul Odor after Cleansing No -Bioengineered Tissue No -Bleeding Controlled with Pressure -Treatment Response Procedure Tolerated Well -Debridement - Subq, 1st 20sq cm No # 2 R Medial Ankle -Time 11:21 -Correct Patient Yes -Correct Side, Site, Position Yes -Correct Procedure Yes -Procedure Performed Yes -Type of Procedure Debridement -Clinical Debridement Subcutaneous -Tissue Removed Subcutaneous -Post Debridement (cm) - Length 2.2 -Post Debridement (cm) - Width 1.5 -Post Debridement (cm) - Depth 0.1 -Total Square (Post) (cm) 3.30 -Area of Debridement (cm) - Length 2.2 -Area of Debridement (cm) - Width 1.5 -Total Square (Area) (cm) 3.30 -Tunneling No -Undermining/Tunneling No -Circular Undermining No -Wound/Ulcer Outcome Not Healed -Ulcer Cleansing Rinsed/ Irrigated with Saline -Foul Odor after Cleansing No -Bioengineered Tissue No -Bleeding Controlled with Pressure -Treatment Response Procedure Tolerated Well -Debridement - Subq, 1st 20sq cm Yes -Debridement, SubQ, ea addt'l 20sq cm 1 or part thereof Pain Scale: 0-10 Numeric Is Patient Pain Free? Yes WC - Nurse 3 - General Ulcer D/C NN Start: 09/01/23 11:02 Freq: Status: Active Protocol: Activity Type Activity Date Activity User E-sign Co-sign Detail Recorded Client Recorded Date Recorded By Document 09/01/23 11:38 RB Desktop 09/01/23 11:41 RB Document 09/08/23 11:14 RB Desktop 09/08/23 11:16 RB 09/01/23 09/08/23 11:38 11:14 Wound Care Center Nurse 3 #1 L Medial Ankle -Ulcer Cleansing Wound Cleanser -Primary Dressing Applied C Hydrogel ($) -Other Dressing hydrogel -Primary Dressing Covered/Secured with Dry Gauze,Dry Dry Gauze & Gauze & Roll Roll Gauze, Gauze,Secured Secured with with Tape Tape # 2 R Medial Ankle -Ulcer Cleansing Rinsed/ Wound Cleanser Irrigated with Saline -Other Dressing hydrogel hydrogel -Primary Dressing Covered/Secured with Dry Gauze,Dry Dry Gauze & Gauze & Roll Roll Gauze, Gauze,Secured Secured with with Tape Tape Right -Tubular Bandage Single Layer Single Layer -Size of Tubigrip Used Size D Size D -Size D ($) 1 1 Left -Tubular Bandage Single Layer Single Layer -Size of Tubigrip Used Size D Size D -Size D ($) 1 1 Treatment Response Procedure Procedure Tolerated Well Tolerated Well Pain Scale: 0-10 Numeric Is Patient Pain Free? Yes Yes Teaching: Wound Center Compression Wraps & Stockings -Person Taught Patient -Teaching Method Discussion, Demonstration -Response to teaching Verbalize understanding Dressing Your Wound -Person Taught Patient -Teaching Method Discussion, Demonstration -Response to teaching Verbalize understanding WC - Visit Discharge Discharge Condition Stable Stable Ambulatory Status Ambulatory Ambulatory Transportation Private Auto Private Auto Medication Reconcilliation completed & No No provided to patient/care provider Clinical Summary of Care Provided Yes Yes Additional Wound Wound debrided: Let medial malleolus Laterality: Left Type of Debridement: Excisional debridement Anesthesia Used: 5% Lidocaine Gel and Cetacaine Depth: Down to and including healthy tissue and in the subcutaneous layer Percentage of wound debrided: 100 Instrument Used: 5mm curette Tissue Removed: Bioburden and nonviable/necrotic tissue Severity: Fat Layer Exposed Amount of bleeding with debridement: Mild Bleeding Controlled with: Compression and gauze Patient tolerated procedure: Patient tolerated procedure well Assessment/Plan Assessment/Plan (1) Chronic venous insufficiency: CODE(S): I87.2 - Venous insufficiency (chronic) (peripheral) (2) Varicose veins with ulcer and inflammation: CODE(S): I83.209 - Varicose veins of unspecified lower extremity with both ulcer of unspecified site and inflammation; L97.909 - Non-pressure chronic ulcer of unspecified part of unspecified lower leg with unspecified severity (3) Venous hypertension, chronic, with ulcer and inflammation: CODE(S): I87.339 - Chronic venous hypertension (idiopathic) with ulcer and inflammation of unspecified lower extremity QUALIFIERS: Laterality: bilateral Qualified Code(s): I87.333 - Chronic venous hypertension (idiopathic) with ulcer and inflammation of bilateral lower extremity (4) Venous stasis ulcer: CODE(S): I83.009 - Varicose veins of unspecified lower extremity with ulcer of unspecified site; L97.909 - Non-pressure chronic ulcer of unspecified part of unspecified lower leg with unspecified severity QUALIFIERS: Venous stasis ulcer site: ankle Laterality: right Non-pressure ulcer stage: with fat layer exposed (5) Venous stasis ulcer of left ankle: CODE(S): I83.023 - Varicose veins of left lower extremity with ulcer of ankle; L97.329 - Non-pressure chronic ulcer of left ankle with unspecified severity QUALIFIERS: Varicose vein presence: with varicose veins Non-pressure ulcer stage: with fat layer exposed Qualified Code(s): I83.023 - Varicose veins of left lower extremity with ulcer of ankle; L97.322 - Non- pressure chronic ulcer of left ankle with fat layer exposed PLAN: Plan This is a generally healthy 58-year-old male who is of normal body habitus. He presented with a longstanding history of venous disease in his lower extremities. He has recently developed venous ulcerations near the medial malleoli bilaterally. The ulceration of the left medial malleolus has recently bled, prompting the patient to seek medical attention. Initially, in the emergency department setting, a suture was placed at the bleeding site to control bleeding from the area. The patient was then referred to Dr. Ender Ruiz, vascular surgeon, who performed ultrasound-guided injection sclerotherapy in the venous network about the ulceration in an effort to enhance ulcer healing and mitigate further bleeding episodes. The patient has been referred for management relative to the ulcerations near the medial malleoli bilaterally. A lengthy discussion has been undertaken with the patient, through his inventory control assistant, regarding the appropriate lifestyle measures for management of his venous disease. Leg elevation has been recommended. The patient's legs are to be elevated to heart level, or higher, as much as possible. This is to be accomplished even during daytime hours. The patient is to continue sleeping on a flat mattress at night. Prolonged idle sitting has been discouraged. Activity has been encouraged. The patient's body weight is normal. We are to continue compression by means of Tubigrip's 20 to 30 mmHg compression, which are to be worn daily. The patient has been provided a prescription for graduated compression stockings of 20 to 30 mmHg, knee-high length, which have been ordered, and are awaited. Once these have been obtained at a local medical supply store, these are to be worn daily. We are to continue the use of collagenase Santyl topically to each of the ulcerations, which will be applied on a daily basis topically. The patient has been given a prescription for the collagenase Santyl. He has been instructed in the appropriate means of application. A coupon has been provided to mitigate the high cost of the product. Once obtained, it will be applied topically on a daily basis. Swab cultures have been obtained of the left medial ankle ulceration, for both aerobic and anaerobic bacterial growth. Results have been reviewed, and were positive for Pseudomonas aeruginosa. Based upon sensitivity results, the patient was prescribed Cipro 500 mg p.o. twice daily for 10 days, which is nearly completed. The patient has been encouraged to elevate his legs is much as possible. He typically works 10 hours/day, typically 5 days/week. These long hours in a standing position are felt to be detrimental to the healing process, as his bilateral lower extremity ulcerations appear to be due to his venous disease. The patient has an appointment to follow-up with Dr. Ender Ruiz for further management of his chronic venous insufficiency. Given that t he patient speaks Italian, with little understanding of Armenian, the patient's care is to be transferred to a Wound Center provider who is fluent in Italian. This measure is expected to facilitate interactions and communications in the best interest of the patient's care. Total time: 26 minutes
[2023-09-16 10:17] VITALS: BP 136/72; PULSE 85; RESP 16; TEMP 36.4; BMI 25.0
--- NOTE | 2023-09-16 11:06 | PCM.WC.PN ---
History of Present Illness Date of Service: 09/16/23 Chief Complaint: Chronic venous insufficiency, varicose veins with inflammation and ulceration, venous hypertension with inflammation and ulceration, venous stasis ulcerations?lower extremities bilaterally History of Wound: This is a 58-year-old male who presented with severe venous disease in his lower extremities bilaterally. He does not speak Armenian. He was accompanied by a friend, who serves as an teacher adventure education. Medical records have been obtained from Dr. Ender Ruiz, vascular surgeon, which have been reviewed. It appears as though the patient has a longstanding history of venous disease in his lower extremities bilaterally. He has recently developed ulcerations near the medial malleoli bilaterally. Bleeding occurred from the ulceration near the left medial malleolus. Patient presented to an emergency department, where the bleeding site was stitched . Patient was referred to Dr. Ender Ruiz, who evaluated the patient, and subsequently performed ultrasound-guided injection sclerotherapy near the ulceration near the left medial malleolus in an effort to ameliorate the high venous pressure responsible for the ulceration and bleeding. According to the records reviewed, Dr. 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 The patient is active. He sleeps on a flat mattress. He denies a history of deep vein thrombosis. Patient is otherwise generally healthy. Subjective Subjective Mr. Radha Musa is a 58-year-old male presenting to the wound care center today for new evaluation with Dr. Carrington for bilateral lower extremity venous stasis ulcerations. Patient has been doing home dressing changes with Santyl dry sterile dressing and single layer compression wrap. He does follow-up with Dr. Ruiz who is his vascular surgeon. He will be following up with him this week for evaluation and imaging studies of his bilateral lower extremities to making sure that his stents are patent. He admits that he is having pain to the right ankle greater than left. He denies any new onset of trauma. He denies constitutional symptoms. No other pedal complaints at this time. Objective Data Objective Data Vital Signs: Vital Signs Temp Pulse Resp BP O2 Del Method 97.6 F L 85 16 136/72 H Room Air 09/16/23 10:17 09/16/23 10:09/16/23 10:17 09/16/23 10:17 09/01/23 11:02 Oxygen Delivery Method Room Air Weight: 70 kg Body Mass Index (BMI) 25.0 Physical Exam Narrative Vascular: DP and PT pulses are palpable. CFT is brisk. Nonpitting edema appreciated to the bilateral lower extremity. Evidence of palpable calcifications appreciated to the bilateral legs. Neurological: Light touch intact. Patient response to painful stimuli. Dermatological: Nonpitting edema appreciated bilateral lower extremity with blanchable erythema. No sign of infection. The right full-thickness ulceration measures 3.0 x 1.5 x 0.1 cm. The left lower extremity full-thickness ulceration measures 3.5 x 3.0 x 0.1 cm. Both wounds are granular nature with no sign of infection. Excisional debridement down to and including subcutaneous tissue with a number 5 mm dermal curette to the right medial ankle wound without incident. Predebridement measurement is 2.8 x 1.3 x 0.1 cm. Postdebridement measurement is 3.0 x 1.5 x 0.1 cm. Excisional debridement down to and including subcutaneous tissue with number 5 mm dermal curette to the left medial ankle without incident. Predebridement measurement is 3.3 x 2.8 x 0.1 cm. Postdebridement measurement is 3.5 x 3.0 x 0.1 cm. Musculoskeletal: No strength 5 out of 5 in all quadrants bilateral. Mild to moderate palpatory tenderness appreciated to the right full-thickness ulceration. Mild palpatory tenderness appreciated to the left full-thickness ulceration. No. Calf pressure. Debridement Note Debridement Note Debridement Free Text: Excisional debridement down to and including subcutaneous tissue with a number 5 mm dermal curette to the right medial ankle wound without incident. Predebridement measurement is 2.8 x 1.3 x 0.1 cm. Postdebridement measurement is 3.0 x 1.5 x 0.1 cm. Excisional debridement down to and including subcutaneous tissue with number 5 mm dermal curette to the left medial ankle without incident. Predebridement measurement is 3.3 x 2.8 x 0.1 cm. Postdebridement measurement is 3.5 x 3.0 x 0.1 cm. Post-Debridement Measurements and Additional Note: Post-Debridement Measurements/Treatment WC - Nurse 1 - General Ulcer Assessment Start: 09/01/23 11:02 Freq: Status: Active Protocol: DELVIN.LOWEXT Activity Type Activity Date Activity User E-sign Co-sign Detail Recorded Client Recorded Date Recorded By Document 09/01/23 11:02 MW Desktop 09/01/23 11:12 MW Document 09/08/23 09:45 RB Desktop 09/08/23 09:47 RB Document 09/16/23 10:17 PL Tablet 09/16/23 10:20 PL 09/01/23 09/08/23 09/16/23 11:02 09:45 10:17 WC - Today's Visit Information Type of service Follow-up Visit Follow-up Visit Follow-up Visit (Physician/PEDIATRIC PHYSIATRIST (Physician/PEDIATRIC PHYSIATRIST (Physician/PEDIATRIC PHYSIATRIST ) ) ) Arrival Mode Ambulatory Ambulatory Ambulatory Transfer Assistance None None None Accompanied by friend Patient Identification Verified (Name & Yes Yes Yes ) Patient Requires Transmission-Based No No No Precautions Safety Precautions NA NA Height and Weight Body Mass Index (BMI) 25.0 25.0 25.0 BMI Classification Overweight Overweight Overweight Vital Signs Temperature (97.8 F-99.1 F) 97.6 F L 97.6 F L 97.6 F L Temperature Source Temporal Temporal Temporal Pulse Rate (60-100) 76 83 85 Pulse Location Monitor Monitor Respiratory Rate (12-18) 16 18 16 Respiratory rate source Observation Observation Oxygen Delivery Method Room Air Blood Pressure (90/60-120/80) 152/79 H 164/64 H 136/72 H Blood Pressure Mean (mm Hg) 103 97 93 Source Monitor Monitor Position Sitting Semi-Fowlers Blood Pressure Location Left Arm Left Arm History Since Last Visit- (Skip if this is Patient's initial visit) Have you changed medications since your No No No last visit? Any new allergies or adverse reactions No No No Had a fall/change in ADL's that may No No No increase risk of falls Signs or symptoms of abuse and/or No No No neglect since last visit Have you been in the hospital since your No No No last visit? Has dressing in place as prescribed Yes Yes Yes Has compression in place as prescribed N/A Yes Yes Has offloadiing in place as prescribed N/A No N/A Experienced any changes in pain level or No No No management Left Footwear Regular Shoe Right Footwear Regular Shoe Pain Scale: 0-10 Numeric Is Patient Pain Free? Yes No Yes WC - Nurse 1 - General Ulcer Measurement Start: 09/01/23 11:02 Freq: Status: Active Protocol: Activity Type Activity Date Activity User E-sign Co-sign Detail Recorded Client Recorded Date Recorded By Document 09/01/23 11:02 MW Desktop 09/01/23 11:12 MW Document 09/08/23 09:45 RB Desktop 09/08/23 09:47 RB 09/01/23 09/08/23 11:02 09:45 Wound Center Nurse 1 #1 L Medial Ankle -Combined with other wound No No -Current Size (cm) - Length 5.7 5 -Current Size (cm) - Width 4.4 3.5 -Current Size (cm) - Depth 0.1 0.1 -Total Square Cm 25.08 17.5 -Photo Taken No -Tunneling No No -Undermining/Tunneling No No -Circular Undermining No No -Exudate Amt Medium Medium -Exudate Type Serosanguineous Serosanguineous -Wound Margin Flat & Intact Distinct, Outline Attached -Granulation Amt None Present (0 Medium (34-66%) %) -Granulation Quality N/A [place] -Slough/Fibrin Yes Yes -Necrosis Amt Large (67-100%) Medium (34-66%) -Necrotic Tissue Type Adherent Slough Adherent Slough -Structure Exposed N/A N/A -Texture (Irina-wound Skin Appearance) Assessed, Assessed Localized Edema -Moisture (Irina-wound Skin Appearance) Assessed Assessed -Color (Irina-wound Skin Appearance) Assessed, Hemosiderin Hemosiderin Staining Staining -Temperature (Irina-wound Skin No Abnormality No Abnormality Appearance) (Pt Warm) (Pt Warm) -Tenderness on Palpation (Irina-wound No No Skin Appearance) -Ulcer Cleansing Soap and Water Wound Cleanser -Foul Odor after Cleansing No No -Anesthetic Used 4% Lidocaine 4% Lidocaine Solution,5% Solution,5% Lidocaine Gel Lidocaine Gel # 2 R Medial Ankle -Combined with other wound No No -Current Size (cm) - Length 2.2 2.3 -Current Size (cm) - Width 1.5 1.5 -Current Size (cm) - Depth 0.1 0.2 -Total Square Cm 3.30 3.45 -Photo Taken No -Epithelialization None Present -Tunneling No No -Undermining/Tunneling No No -Circular Undermining No No -Exudate Amt Medium Medium -Exudate Type Serosanguineous Serosanguineous -Wound Margin Flat & Intact Distinct, Outline Attached -Granulation Amt None Present (0 Medium (34-66%) %) -Granulation Quality N/A Hyper- granulation -Slough/Fibrin Yes Yes -Necrosis Amt Large (67-100%) Large (67-100%) -Necrotic Tissue Type Adherent Slough Adherent Slough -Structure Exposed N/A N/A -Texture (Irina-wound Skin Appearance) Assessed, Assessed Localized Edema -Moisture (Irina-wound Skin Appearance) Assessed Assessed -Color (Irina-wound Skin Appearance) Assessed, Hemosiderin Hemosiderin Staining Staining -Temperature (Irina-wound Skin No Abnormality Appearance) (Pt Warm) -Tenderness on Palpation (Irina-wound No Skin Appearance) -Ulcer Cleansing Wound Cleanser -Foul Odor after Cleansing No -Anesthetic Used 4% Lidocaine Solution,5% Lidocaine Gel Lower Limb Edema Present Yes Yes Right Calf (cm) 36.5 36.5 Right Ankle (cm) 22.0 22.7 Left Calf (cm) 37.0 37 Left Ankle (cm) 23.5 22 WC - Nurse 2 - General Ulcer CM Notes Start: 09/01/23 11:02 Freq: Status: Active Protocol: Activity Type Activity Date Activity User E-sign Co-sign Detail Recorded Client Recorded Date Recorded By Document 09/01/23 12:54 PL [id number] 09/01/23 12:56 PL Document 09/08/23 12:19 PL [id number] 09/08/23 12:28 PL Document 09/16/23 10:38 Laptop 09/16/23 10:43 09/01/23 09/08/23 09/16/23 12:54 12:19 10:38 Wound Center Nurse 2 #1 L Medial Ankle -Time 11:21 10:01 10:38 -Correct Patient Yes Yes Yes -Correct Side, Site, Position Yes Yes Yes -Correct Procedure Yes Yes Yes -Procedure Performed Yes Yes Yes -Type of Procedure Debridement Debridement Debridement -Clinical Debridement Subcutaneous Subcutaneous Subcutaneous -Tissue Removed Subcutaneous Subcutaneous Subcutaneous -Post Debridement (cm) - Length 5.7 5.0 3.5 -Post Debridement (cm) - Width 4.4 3.5 3.0 -Post Debridement (cm) - Depth 0.1 0.1 0.1 -Total Square (Post) (cm) 25.08 17.50 10.50 -Area of Debridement (cm) - Length 5.7 5.0 3.5 -Area of Debridement (cm) - Width 4.4 3.5 3.0 -Total Square (Area) (cm) 25.08 17.50 10.50 -Tunneling No No No -Undermining/Tunneling No No No -Circular Undermining No No No -Wound/Ulcer Outcome Not Healed Not Healed Not Healed -Ulcer Cleansing Rinsed/ Rinsed/ Rinsed/ Irrigated with Irrigated with Irrigated with Saline Saline Saline -Foul Odor after Cleansing No No No -Bioengineered Tissue No No No -Bleeding Controlled with Pressure Pressure Pressure -Treatment Response Procedure Procedure Procedure Tolerated Well Tolerated Well Tolerated Well -Offloading No -Debridement - Subq, 1st 20sq cm No No No # 2 R Medial Ankle -Time 11:21 10:01 10:39 -Correct Patient Yes Yes Yes -Correct Side, Site, Position Yes Yes Yes -Correct Procedure Yes Yes Yes -Procedure Performed Yes Yes Yes -Type of Procedure Debridement Debridement Debridement -Clinical Debridement Subcutaneous Subcutaneous Subcutaneous -Tissue Removed Subcutaneous Subcutaneous Subcutaneous -Post Debridement (cm) - Length 2.2 2.2 3.0 -Post Debridement (cm) - Width 1.5 1.5 1.5 -Post Debridement (cm) - Depth 0.1 0.2 0.1 -Total Square (Post) (cm) 3.30 3.30 4.50 -Area of Debridement (cm) - Length 2.2 2.2 3.0 -Area of Debridement (cm) - Width 1.5 1.5 1.5 -Total Square (Area) (cm) 3.30 3.30 4.50 -Tunneling No No No -Undermining/Tunneling No No No -Circular Undermining No No No -Wound/Ulcer Outcome Not Healed Not Healed Not Healed -Ulcer Cleansing Rinsed/ Rinsed/ Rinsed/ Irrigated with Irrigated with Irrigated with Saline Saline Saline -Foul Odor after Cleansing No No No -Bioengineered Tissue No No No -Bleeding Controlled with Pressure Pressure Pressure -Treatment Response Procedure Procedure Procedure Tolerated Well Tolerated Well Tolerated Well -Offloading No -Debridement - Subq, 1st 20sq cm Yes Yes Yes -Debridement, SubQ, ea addt'l 20sq cm 1 or part thereof Pain Scale: 0-10 Numeric Is Patient Pain Free? Yes Yes Yes - Nurse 3 - General Ulcer D/C NN Start: 09/01/23 11:02 Freq: Status: Active Protocol: Activity Type Activity Date Activity User E-sign Co-sign Detail Recorded Client Recorded Date Recorded By Document 09/01/23 11:38 RB Desktop 09/01/23 11:41 RB Document 09/08/23 11:14 RB Desktop 09/08/23 11:16 RB 09/01/23 09/08/23 11:38 11:14 Wound Care Center Nurse 3 #1 L Medial Ankle -Ulcer Cleansing Wound Cleanser -Primary Dressing Applied C Hydrogel ($) -Other Dressing hydrogel -Primary Dressing Covered/Secured with Dry Gauze,Dry Dry Gauze & Gauze & Roll Roll Gauze, Gauze,Secured Secured with with Tape Tape # 2 R Medial Ankle -Ulcer Cleansing Rinsed/ Wound Cleanser Irrigated with Saline -Other Dressing hydrogel hydrogel -Primary Dressing Covered/Secured with Dry Gauze,Dry Dry Gauze & Gauze & Roll Roll Gauze, Gauze,Secured Secured with with Tape Tape Right -Tubular Bandage Single Layer Single Layer -Size of Tubigrip Used Size D Size D -Size D ($) 1 1 Left -Tubular Bandage Single Layer Single Layer -Size of Tubigrip Used Size D Size D -Size D ($) 1 1 Treatment Response Procedure Procedure Tolerated Well Tolerated Well Pain Scale: 0-10 Numeric Is Patient Pain Free? Yes Yes Teaching: Wound Center Compression Wraps & Stockings -Person Taught Patient -Teaching Method Discussion, Demonstration -Response to teaching Verbalize understanding Dressing Your Wound -Person Taught Patient -Teaching Method Discussion, Demonstration -Response to teaching Verbalize understanding WC - Visit Discharge Discharge Condition Stable Stable Ambulatory Status Ambulatory Ambulatory Transportation Private Auto Private Auto Medication Reconcilliation completed & No No provided to patient/care provider Clinical Summary of Care Provided Yes Yes Assessment/Plan Assessment/Plan (1) Non-pressure ulcer of left lower extremity with fat layer exposed: CODE(S): L97.922 - Non-pressure chronic ulcer of unspecified part of left lower leg with fat layer exposed PLAN: Patient was examined evaluated. All findings were discussed with the patient. All questions were answered to the patient satisfaction. Excisional debridement down to and including subcutaneous tissue with a number 5 mm dermal curette to the right medial ankle wound without incident. Predebridement measurement is 2.8 x 1.3 x 0.1 cm. Postdebridement measurement is 3.0 x 1.5 x 0.1 cm. Excisional debridement down to and including subcutaneous tissue with number 5 mm dermal curette to the left medial ankle without incident. Predebridement measurement is 3.3 x 2.8 x 0.1 cm. Postdebridement measurement is 3.5 x 3.0 x 0.1 cm. The bilateral ulceration was dressed with Santyl, wet-to-dry gauze and a double layer Tubigrip was donned. Patient was instructed to do home dressing changes. All this was discussed and educated with the patient's friend that was at bedside for interpretation. Patient will be given an order for lab work for CBC with differential, BMP, CRP, ESR and hemoglobin A1c and random glucose test to rule out if the patient has any deep infection as well as being diabetic. Patient was understanding of this. The patient will follow-up in 1 week. (2) Non-pressure chronic ulcer of unspecified part of right lower leg with fat layer exposed: CODE(S): L97.912 - Non-pressure chronic ulcer of unspecified part of right lower leg with fat layer exposed (3) Venous hypertension, chronic, with ulcer and inflammation: CODE(S): I87.339 - Chronic venous hypertension (idiopathic) with ulcer and inflammation of unspecified lower extremity QUALIFIERS: Laterality: bilateral Qualified Code(s): I87.333 - Chronic venous hypertension (idiopathic) with ulcer and inflammation of bilateral lower extremity
[2023-09-16 12:09] LABS: Erythrocyte Sedimentation Rate 8 mm/hr (0-20)
[2023-09-16 12:11] LABS: Absolute Lymphocyte Count 0.93 X10^3/uL (0.83-4.51); Absolute Neutrophil Count 4.1 X10^3/uL (2.0-7.7); Basophil# 0.06 X10^3/uL; Eosinophil# 0.24 X10^3/uL; Hemoglobin 11.5 g/dL (13.0-16.5); Lymphocyte # 0.93 X10^3/ul (0.83-4.51); Lymphocyte % 15.5 % (19-41); Mean Corp Hgb Conc 31.9 g/dL (32-36); Mean Corpuscular Hgb 30.9 pg (27.0-32.0); Mean Corpuscular Volume 96.8 fL (80-94); Mean Platelet Vol. 8.9 fl (6.2-12.0); Monocyte# 0.66 X10^3/uL; NRBC Flagged by Analyzer 0 % (0-5); Neutrophil # 4.09 X10^3/uL (2.7-7.7); Platelet Count 359 K/mm3 (150-450); RBC Distribution Width CV 13.3 % (11.6-14.6); RBC Distribution Width SD 47.3 fl (35.1-43.9); Red Blood Count 3.72 M/mm3 (4.6-6.2)
[2023-09-16 12:24] LABS: ALB/GLOB Ratio 0.9 RATIO (0.9-2.4); AST(SGOT) 19 U/L (15-37); Alanine Aminotransfer ALT/SGPT 20 U/L (16-61); Albumin, Serum 3.3 g/dL (3.2-5.0); Alkaline Phosphatase 83 U/L (45-117); Anion Gap 2 (5-15); BUN 15 mg/dL (7-18); BUN/Creat Ratio 20.1 RATIO (10-20); Calcium,Total 8.7 mg/dL (8.5-10.1); Chloride 108 mmol/L (98-107); Creatinine, Serum 0.74 mg/dL (0.70-1.30); EST Glomerular Filtration Rate 115 mL/min (>60); Est Glom Filt Rate - Afr Amer 139 mL/min (>60); Estimated Creatinine Clearance 96.96 ml/min; Globulin 3.8 g/dL (2.2-4.2); Glucose 78 mg/dL (74-106); Potassium 3.6 mmol/L (3.5-5.1); Protein, Total 7.1 g/dL (6.4-8.2); Sodium Level 140 mmol/L (136-145)
[2023-09-16 12:26] LABS: Hemoglobin A1c 4.9 % (3.8-5.6)
[2023-09-23 10:23] VITALS: BP 154/94; PULSE 106; BMI 25.0
--- NOTE | 2023-09-23 11:33 | PCM.WC.PN ---
History of Present Illness Date of Service: 09/23/23 Chief Complaint: Chronic venous insufficiency, varicose veins with inflammation and ulceration, venous hypertension with inflammation and ulceration, venous stasis ulcerations?lower extremities bilaterally History of Wound: This is a 58-year-old male who presented with severe venous disease in his lower extremities bilaterally. He does not speak [place]. He was accompanied by a friend, who serves as an gas leak inspector helper. Medical records have been obtained from Dr. Ender Ruiz, vascular surgeon, which have been reviewed. It appears as though the patient has a longstanding history of venous disease in his lower extremities bilaterally. He has recently developed ulcerations near the medial malleoli bilaterally. Bleeding occurred from the ulceration near the left medial malleolus. Patient presented to an emergency department, where the bleeding site was stitched . Patient was referred to Dr. Ender Ruiz, who evaluated the patient, and subsequently performed ultrasound-guided injection sclerotherapy near the ulceration near the left medial malleolus in an effort to ameliorate the high venous pressure responsible for the ulceration and bleeding. According to the records reviewed, Dr. 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 The patient is active. He sleeps on a flat mattress. He denies a history of deep vein thrombosis. Patient is otherwise generally healthy. Subjective Subjective Mr. Scott Musa is a 58-year-old male presenting to the [facility] for follow-up evaluation to bilateral full-thickness ankle wounds. Patient has been doing home dressing changes. He did get his lab work and is anticipating his results. Patient denies any increasing drainage to the bilateral leg wounds. He denies any trauma. Denies constitutional symptoms. No other pedal complaints at this time. Objective Data Objective Data Vital Signs: Vital Signs Temp Pulse Resp BP O2 Del Method 97.6 F L 106 H 16 154/94 H Room Air 09/16/23 10:17 09/23/23 10:23 09/16/23 10:17 09/23/23 10:23 09/23/23 10:23 Oxygen Delivery Method Room Air Weight: 70 kg Body Mass Index (BMI) 25.0 Lab / Micro Data 09/16/23 11:31 09/16/23 11:31 Physical Exam Narrative [facility] [address] [place] [address] Progress Note - Wound Care 09/16/23 1106 MR#: [id number] Acct: [id number] Name: FAMILIA WOOD Rep #: [id number] : 1965 58 From: Hugo Carrington DPM PCP: Care Physician,No Primary Status: REG RCR Location: History of Present Illness Date of Service: 09/16/23 Chief Complaint: Chronic venous insufficiency, varicose veins with inflammation and ulceration, venous hypertension with inflammation and ulceration, venous stasis ulcerations?lower extremities bilaterally History of Wound: This is a 58-year-old male who presented with severe venous disease in his lower extremities bilaterally. He does not speak [place]. He was accompanied by a friend, who serves as an gas leak inspector helper. Medical records have been obtained from Dr. Ender Ruiz, vascular surgeon, which have been reviewed. It appears as though the patient has a longstanding history of venous disease in his lower extremities bilaterally. He has recently developed ulcerations near the medial malleoli bilaterally. Bleeding occurred from the ulceration near the left medial malleolus. Patient presented to an emergency department, where the bleeding site was stitched . Patient was referred to Dr. Ender Ruiz, who evaluated the patient, and subsequently performed ultrasound-guided injection sclerotherapy near the ulceration near the left medial malleolus in an effort to ameliorate the high venous pressure responsible for the ulceration and bleeding. According to the records reviewed, Dr. 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 The patient is active. He sleeps on a flat mattress. He denies a history of deep vein thrombosis. Patient is otherwise generally healthy. Subjective Subjective Mr. Radha Musa is a 58-year-old male presenting to the wound care center today for new evaluation with Dr. Carrington for bilateral lower extremity venous stasis ulcerations. Patient has been doing home dressing changes with Santyl dry sterile dressing and single layer compression wrap. He does follow-up with Dr. Ruiz who is his vascular surgeon. He will be following up with him this week for evaluation and imaging studies of his bilateral lower extremities to making sure that his stents are patent. He admits that he is having pain to the right ankle greater than left. He denies any new onset of trauma. He denies constitutional symptoms. No other pedal complaints at this time. Objective Data Objective Data Vital Signs: Vital Signs Temp Pulse Resp BP O2 Del Method 97.6 F L 85 16 136/72 H Room Air 09/16/23 10:17 09/16/23 10:17 09/16/23 10:17 09/16/23 10:17 09/01/23 11:02 Oxygen Delivery Method Room Air Weight: 70 kg Body Mass Index (BMI) 25.0 Physical Exam Narrative Vascular: DP and PT pulses are palpable. CFT is brisk. Nonpitting edema appreciated to the bilateral lower extremity. Evidence of palpable calcifications appreciated to the bilateral legs. Neurological: Light touch intact. Patient response to painful stimuli. Dermatological: Nonpitting edema appreciated bilateral lower extremity with blanchable erythema. No sign of infection. The right full-thickness ulceration measures 3.0 x 1.5 x 0.1 cm. The left lower extremity full-thickness ulceration measures 3.5 x 3.0 x 0.1 cm. Both wounds are granular nature with no sign of infection. Excisional debridement down to and including subcutaneous tissue with a number 5 mm dermal curette to the right medial ankle wound without incident. Predebridement measurement is 1.6 x 1.3 x 0.1 cm. Postdebridement measurement is 1.8 x 1.4 x 0.1 cm. Excisional debridement down to and including subcutaneous tissue with number 5 mm dermal curette to the left medial ankle without incident. Predebridement measurement is 2.2 x 2.8 x 0.1 cm. Postdebridement measurement is 2.3 x 3.0 x 0.1 cm. Musculoskeletal: No strength 5 out of 5 in all quadrants bilateral. Mild to moderate palpatory tenderness appreciated to the right full-thickness ulceration. Mild palpatory tenderness appreciated to the left full-thickness ulceration. No pain with calf compression. Debridement Note Debridement Note Debridement Free Text: Excisional debridement down to and including subcutaneous tissue with a number 5 mm dermal curette to the right medial ankle wound without incident. Predebridement measurement is 1.6 x 1.3 x 0.1 cm. Postdebridement measurement is 1.8 x 1.4 x 0.1 cm. Excisional debridement down to and including subcutaneous tissue with number 5 mm dermal curette to the left medial ankle without incident. Predebridement measurement is 2.2 x 2.8 x 0.1 cm. Postdebridement measurement is 2.3 x 3.0 x 0.1 cm. Post-Debridement Measurements and Additional Note: Post-Debridement Measurements/Treatment WC - Nurse 1 - General Ulcer Assessment Start: 09/01/23 11:02 Freq: Status: Active Protocol: KATHYA Activity Type Activity Date Activity User E-sign Co-sign Detail Recorded Client Recorded Date Recorded By Document 09/01/23 11:02 MW Desktop 09/01/23 11:12 MW Document 09/08/23 09:45 RB Desktop 09/08/23 09:47 RB Document 09/16/23 10:17 PL Tablet 09/16/23 10:20 PL Document 09/23/23 10:23 GM Desktop 09/23/23 10:28 GM 09/01/23 09/08/23 09/16/23 11:02 09:45 10:17 WC - Today's Visit Information Type of service Follow-up Visit Follow-up Visit Follow-up Visit (Physician/SPIN TABLE OPERATOR (Physician/SPIN TABLE OPERATOR (Physician/SPIN TABLE OPERATOR ) ) ) Arrival Mode Ambulatory Ambulatory Ambulatory Transfer Assistance None None None Accompanied by friend Patient Identification Verified (Name & Yes Yes Yes ) Patient Requires Transmission-Based No No No Precautions Safety Precautions NA NA Height and Weight Body Mass Index (BMI) 25.0 25.0 25.0 BMI Classification Overweight Overweight Overweight Vital Signs Temperature (97.8 F-99.1 F) 97.6 F L 97.6 F L 97.6 F L Temperature Source Temporal Temporal Temporal Pulse Rate (60-100) 76 83 85 Pulse Location Monitor Monitor Respiratory Rate (12-18) 16 18 16 Respiratory rate source Observation Observation Oxygen Delivery Method Room Air Blood Pressure (90/60-120/80) 152/79 H 164/64 H 136/72 H Blood Pressure Mean (mm Hg) 103 97 93 Source Monitor Monitor Position Sitting Semi-Fowlers Blood Pressure Location Left Arm Left Arm History Since Last Visit- (Skip if this is Patient's initial visit) Have you changed medications since your No No No last visit? Any new allergies or adverse reactions No No No Had a fall/change in ADL's that may No No No increase risk of falls Signs or symptoms of abuse and/or No No No neglect since last visit Have you been in the hospital since your No No No last visit? Has dressing in place as prescribed Yes Yes Yes Has compression in place as prescribed N/A Yes Yes Has offloadiing in place as prescribed N/A No N/A Experienced any changes in pain level or No No No management Left Footwear Regular Shoe Right Footwear Regular Shoe Pain Scale: 0-10 Numeric Is Patient Pain Free? Yes No Yes 09/23/23 10:23 WC - Today's Visit Information Type of service Follow-up Visit (Physician/SPIN TABLE OPERATOR ) Arrival Mode Ambulatory Transfer Assistance None Accompanied by Patient Identification Verified (Name & Yes ) Patient Requires Transmission-Based Precautions Safety Precautions Height and Weight Body Mass Index (BMI) 25.0 BMI Classification Overweight Vital Signs Temperature (97.8 F-99.1 F) Temperature Source Pulse Rate (60-100) 106 H Pulse Location Monitor Respiratory Rate (12-18) Respiratory rate source Oxygen Delivery Method Room Air Blood Pressure (90/60-120/80) 154/94 H Blood Pressure Mean (mm Hg) 114 Source Monitor Position Sitting Blood Pressure Location Right Arm History Since Last Visit- (Skip if this is Patient's initial visit) Have you changed medications since your No last visit? Any new allergies or adverse reactions No Had a fall/change in ADL's that may No increase risk of falls Signs or symptoms of abuse and/or No neglect since last visit Have you been in the hospital since your No last visit? Has dressing in place as prescribed Yes Has compression in place as prescribed Yes Has offloadiing in place as prescribed No Experienced any changes in pain level or No management Left Footwear Regular Shoe Right Footwear Regular Shoe Pain Scale: 0-10 Numeric Is Patient Pain Free? Yes - Nurse 1 - General Ulcer Measurement Start: 09/01/23 11:02 Freq: Status: Active Protocol: Activity Type Activity Date Activity User E-sign Co-sign Detail Recorded Client Recorded Date Recorded By Document 09/01/23 11:02 MW Desktop 09/01/23 11:12 MW Document 09/08/23 09:45 RB Desktop 09/08/23 09:47 RB Document 09/23/23 10:23 GM Desktop 09/23/23 10:28 GM 09/01/23 09/08/23 09/23/23 11:02 09:45 10:23 Wound Center Nurse 1 #1 L Medial Ankle -Combined with other wound No No -Current Size (cm) - Length 5.7 5 2.4 -Current Size (cm) - Width 4.4 3.5 3.5 -Current Size (cm) - Depth 0.1 0.1 0.2 -Total Square Cm 25.08 17.5 8.40 -Photo Taken No No -Epithelialization None Present -Tunneling No No No -Undermining/Tunneling No No No -Circular Undermining No No No -Exudate Amt Medium Medium Small -Exudate Type Serosanguineous Serosanguineous Yellow/Green -Wound Margin Flat & Intact Distinct, Distinct, Outline Outline Attached Attached -Granulation Amt None Present (0 Medium (34-66%) Medium (34-66%) %) -Granulation Quality N/A Counce Red -Slough/Fibrin Yes Yes -Necrosis Amt Large (67-100%) Medium (34-66%) Small (1-33%) -Necrotic Tissue Type Adherent Slough Adherent Slough Adherent Slough -Structure Exposed N/A N/A -Texture (Irina-wound Skin Appearance) Assessed, Assessed Assessed Localized Edema -Moisture (Irina-wound Skin Appearance) Assessed Assessed Assessed -Color (Irina-wound Skin Appearance) Assessed, Hemosiderin Assessed Hemosiderin Staining Staining -Temperature (Irina-wound Skin No Abnormality No Abnormality Appearance) (Pt Warm) (Pt Warm) -Tenderness on Palpation (Irina-wound No No Skin Appearance) -Ulcer Cleansing Soap and Water Wound Cleanser Rinsed/ Irrigated with Saline -Foul Odor after Cleansing No No No -Anesthetic Used 4% Lidocaine 4% Lidocaine 5% Lidocaine Solution,5% Solution,5% Gel Lidocaine Gel Lidocaine Gel # 2 R Medial Ankle -Combined with other wound No No -Current Size (cm) - Length 2.2 2.3 2.1 -Current Size (cm) - Width 1.5 1.5 1.2 -Current Size (cm) - Depth 0.1 0.2 0.2 -Total Square Cm 3.30 3.45 2.52 -Photo Taken No No -Epithelialization None Present Small 1-33% -Tunneling No No No -Undermining/Tunneling No No No -Circular Undermining No No No -Exudate Amt Medium Medium Small -Exudate Type Serosanguineous Serosanguineous Yellow/Green -Wound Margin Flat & Intact Distinct, Distinct, Outline Outline Attached Attached -Granulation Amt None Present (0 Medium (34-66%) Medium (34-66%) %) -Granulation Quality N/A Hyper- Red granulation -Slough/Fibrin Yes Yes -Necrosis Amt Large (67-100%) Large (67-100%) Small (1-33%) -Necrotic Tissue Type Adherent Slough Adherent Slough Adherent Slough -Structure Exposed N/A N/A N/A -Texture (Irina-wound Skin Appearance) Assessed, Assessed Assessed Localized Edema -Moisture (Irina-wound Skin Appearance) Assessed Assessed Assessed -Color (Irina-wound Skin Appearance) Assessed, Hemosiderin Assessed Hemosiderin Staining Staining -Temperature (Irina-wound Skin No Abnormality Appearance) (Pt Warm) -Tenderness on Palpation (Irina-wound No Skin Appearance) -Ulcer Cleansing Wound Cleanser Rinsed/ Irrigated with Saline -Foul Odor after Cleansing No No -Anesthetic Used 4% Lidocaine 5% Lidocaine Solution,5% Gel Lidocaine Gel Lower Limb Edema Present Yes Yes Right Calf (cm) 36.5 36.5 35 Right Ankle (cm) 22.0 22.7 21 Left Calf (cm) 37.0 37 35.3 Left Ankle (cm) 23.5 22 22.6 WC - Nurse 2 - General Ulcer CM Notes Start: 09/01/23 11:02 Freq: Status: Active Protocol: Activity Type Activity Date Activity User E-sign Co-sign Detail Recorded Client Recorded Date Recorded By Document 09/01/23 12:54 PL [id number] 09/01/23 12:56 PL Document 09/08/23 12:19 PL [id number] 09/08/23 12:28 PL Document 09/16/23 10:38 Laptop 09/16/23 10:43 Document 09/23/23 10:34 Laptop 09/23/23 10:38 09/01/23 09/08/23 09/16/23 12:54 12:19 10:38 Wound Center Nurse 2 #1 L Medial Ankle -Time 11:21 10:01 10:38 -Correct Patient Yes Yes Yes -Correct Side, Site, Position Yes Yes Yes -Correct Procedure Yes Yes Yes -Procedure Performed Yes Yes Yes -Type of Procedure Debridement Debridement Debridement -Clinical Debridement Subcutaneous Subcutaneous Subcutaneous -Tissue Removed Subcutaneous Subcutaneous Subcutaneous -Post Debridement (cm) - Length 5.7 5.0 3.5 -Post Debridement (cm) - Width 4.4 3.5 3.0 -Post Debridement (cm) - Depth 0.1 0.1 0.1 -Total Square (Post) (cm) 25.08 17.50 10.50 -Area of Debridement (cm) - Length 5.7 5.0 3.5 -Area of Debridement (cm) - Width 4.4 3.5 3.0 -Total Square (Area) (cm) 25.08 17.50 10.50 -Tunneling No No No -Undermining/Tunneling No No No -Circular Undermining No No No -Wound/Ulcer Outcome Not Healed Not Healed Not Healed -Ulcer Cleansing Rinsed/ Rinsed/ Rinsed/ Irrigated with Irrigated with Irrigated with Saline Saline Saline -Foul Odor after Cleansing No No No -Bioengineered Tissue No No No -Bleeding Controlled with Pressure Pressure Pressure -Treatment Response Procedure Procedure Procedure Tolerated Well Tolerated Well Tolerated Well -Offloading No -Debridement - Subq, 1st 20sq cm No No No # 2 R Medial Ankle -Time 11:21 10:01 10:39 -Correct Patient Yes Yes Yes -Correct Side, Site, Position Yes Yes Yes -Correct Procedure Yes Yes Yes -Procedure Performed Yes Yes Yes -Type of Procedure Debridement Debridement Debridement -Clinical Debridement Subcutaneous Subcutaneous Subcutaneous -Tissue Removed Subcutaneous Subcutaneous Subcutaneous -Post Debridement (cm) - Length 2.2 2.2 3.0 -Post Debridement (cm) - Width 1.5 1.5 1.5 -Post Debridement (cm) - Depth 0.1 0.2 0.1 -Total Square (Post) (cm) 3.30 3.30 4.50 -Area of Debridement (cm) - Length 2.2 2.2 3.0 -Area of Debridement (cm) - Width 1.5 1.5 1.5 -Total Square (Area) (cm) 3.30 3.30 4.50 -Tunneling No No No -Undermining/Tunneling No No No -Circular Undermining No No No -Wound/Ulcer Outcome Not Healed Not Healed Not Healed -Ulcer Cleansing Rinsed/ Rinsed/ Rinsed/ Irrigated with Irrigated with Irrigated with Saline Saline Saline -Foul Odor after Cleansing No No No -Bioengineered Tissue No No No -Bleeding Controlled with Pressure Pressure Pressure -Treatment Response Procedure Procedure Procedure Tolerated Well Tolerated Well Tolerated Well -Offloading No -Debridement - Subq, 1st 20sq cm Yes Yes Yes -Debridement, SubQ, ea addt'l 20sq cm 1 or part thereof Pain Scale: 0-10 Numeric Is Patient Pain Free? Yes Yes Yes 09/23/23 10:34 Wound Center Nurse 2 #1 L Medial Ankle -Time 10:35 -Correct Patient Yes -Correct Side, Site, Position Yes -Correct Procedure Yes -Procedure Performed Yes -Type of Procedure Debridement -Clinical Debridement Subcutaneous -Tissue Removed Subcutaneous -Post Debridement (cm) - Length 2.3 -Post Debridement (cm) - Width 3.0 -Post Debridement (cm) - Depth 0.1 -Total Square (Post) (cm) 6.90 -Area of Debridement (cm) - Length 2.3 -Area of Debridement (cm) - Width 3.0 -Total Square (Area) (cm) 6.90 -Tunneling No -Undermining/Tunneling No -Circular Undermining No -Wound/Ulcer Outcome Not Healed -Ulcer Cleansing Rinsed/ Irrigated with Saline -Foul Odor after Cleansing No -Bioengineered Tissue No -Bleeding Controlled with Pressure -Treatment Response Procedure Tolerated Well -Offloading No -Debridement - Subq, 1st 20sq cm No # 2 R Medial Ankle -Time 10:36 -Correct Patient Yes -Correct Side, Site, Position Yes -Correct Procedure Yes -Procedure Performed Yes -Type of Procedure Debridement -Clinical Debridement Subcutaneous -Tissue Removed Subcutaneous -Post Debridement (cm) - Length 1.8 -Post Debridement (cm) - Width 1.4 -Post Debridement (cm) - Depth 0.1 -Total Square (Post) (cm) 2.52 -Area of Debridement (cm) - Length 1.8 -Area of Debridement (cm) - Width 1.4 -Total Square (Area) (cm) 2.52 -Tunneling No -Undermining/Tunneling No -Circular Undermining No -Wound/Ulcer Outcome Not Healed -Ulcer Cleansing Rinsed/ Irrigated with Saline -Foul Odor after Cleansing No -Bioengineered Tissue No -Bleeding Controlled with Pressure -Treatment Response Procedure Tolerated Well -Offloading No -Debridement - Subq, 1st 20sq cm Yes -Debridement, SubQ, ea addt'l 20sq cm or part thereof Pain Scale: 0-10 Numeric Is Patient Pain Free? Yes WC - Nurse 3 - General Ulcer D/C NN Start: 09/01/23 11:02 Freq: Status: Active Protocol: Activity Type Activity Date Activity User E-sign Co-sign Detail Recorded Client Recorded Date Recorded By Document 09/01/23 11:38 RB Desktop 09/01/23 11:41 RB Document 09/08/23 11:14 RB Desktop 09/08/23 11:16 RB Document 09/23/23 10:59 KW Desktop 09/23/23 11:00 KW 09/01/23 09/08/23 09/23/23 11:38 11:14 10:59 Wound Care Center Nurse 3 #1 L Medial Ankle -Ulcer Cleansing Wound Cleanser -Primary Dressing Applied C Hydrogel ($) -Other Dressing hydrogel -Primary Dressing Covered/Secured with Dry Gauze,Dry Dry Gauze & Dry Gauze & Gauze & Roll Roll Gauze, Roll Gauze, Gauze,Secured Secured with Secured with with Tape Tape Tape # 2 R Medial Ankle -Ulcer Cleansing Rinsed/ Wound Cleanser Irrigated with Saline -Other Dressing hydrogel hydrogel -Primary Dressing Covered/Secured with Dry Gauze,Dry Dry Gauze & Dry Gauze & Gauze & Roll Roll Gauze, Roll Gauze, Gauze,Secured Secured with Secured with with Tape Tape Tape Bilateral -Tubular Bandage Double Layer -Size of Tubigrip Used Size D -Size D ($) 2 Right -Tubular Bandage Single Layer Single Layer -Size of Tubigrip Used Size D Size D -Size D ($) 1 1 Left -Tubular Bandage Single Layer Single Layer -Size of Tubigrip Used Size D Size D -Size D ($) 1 1 Treatment Response Procedure Procedure Tolerated Well Tolerated Well Pain Scale: 0-10 Numeric Is Patient Pain Free? Yes Yes Yes Teaching: Wound Center Compression Wraps & Stockings -Person Taught Patient -Teaching Method Discussion, Demonstration -Response to teaching Verbalize understanding Dressing Your Wound -Person Taught Patient -Teaching Method Discussion, Demonstration -Response to teaching Verbalize understanding WC - Visit Discharge Discharge Condition Stable Stable Stable Ambulatory Status Ambulatory Ambulatory Transportation Private Auto Private Auto Private Auto Medication Reconcilliation completed & No No No provided to patient/care provider Clinical Summary of Care Provided Yes Yes Yes Assessment/Plan Assessment/Plan (1) Non-pressure chronic ulcer of unspecified part of right lower leg with fat layer exposed: CODE(S): L97.912 - Non-pressure chronic ulcer of unspecified part of right lower leg with fat layer exposed PLAN: Patient was examined and evaluated. All findings were discussed with the patient. All questions were answered to the patient's satisfaction. Excisional debridement down to and including subcutaneous tissue with a number 5 mm dermal curette to the right medial ankle wound without incident. Predebridement measurement is 1.6 x 1.3 x 0.1 cm. Postdebridement measurement is 1.8 x 1.4 x 0.1 cm. Excisional debridement down to and including subcutaneous tissue with number 5 mm dermal curette to the left medial ankle without incident. Predebridement measurement is 2.2 x 2.8 x 0.1 cm. Postdebridement measurement is 2.3 x 3.0 x 0.1 cm. Santyl was applied to both/bilateral full-thickness ulceration and covered dry sterile dressing and a double layer Tubigrip was applied. Patient's blood results were reviewed that showed no evidence of diabetes or elevated blood sugar. There is some evidence of increase and decrease in labs which the patient will need to follow-up with his primary care physician for evaluation. This was all translated by the patient's orchid superintendent at today's visit. He was grateful for his care and left the office pleased with his visit. Follow-up at the wound care center with Dr. Carrington in 1 week. (2) Non-pressure ulcer of left lower extremity with fat layer exposed: CODE(S): L97.922 - Non-pressure chronic ulcer of unspecified part of left lower leg with fat layer exposed (3) Venous hypertension, chronic, with ulcer and inflammation: CODE(S): I87.339 - Chronic venous hypertension (idiopathic) with ulcer and inflammation of unspecified lower extremity QUALIFIERS: Laterality: bilateral Qualified Code(s): I87.333 - Chronic venous hypertension (idiopathic) with ulcer and inflammation of bilateral lower extremity
== END 2023-09-27 23:59 | disposition home or self-care (01) ==
LOC: WC 10:15
PROVIDERS: Referring Provider Surgery Vascular Surgery; Visit Provider Surgery
DX: I83.223 Varicose veins of left lower extremity with both ulcer of ankle and inflammation (principal); L97.322 Non-pressure chronic ulcer of left ankle with fat layer exposed; L97.312 Non-pressure chronic ulcer of right ankle with fat layer exposed; I83.213 Varicose veins of right lower extremity with both ulcer of ankle and inflammation
CPT/HCPCS: 11042; 11045; 36415; 80053; 83036; 85025; 85652; 86140

== ENCOUNTER 2023-10-14 10:30 | Outpatient (RCR) | payer OTHER, SELFPAY ==
[2023-09-28 00:38] VITALS: BP 154/94; PULSE 106; RESP 16; TEMP 36.4; BMI 25.0
[2023-09-30 10:26] VITALS: BP 165/91; PULSE 82; RESP 18; BMI 25.0
--- NOTE | 2023-09-30 12:40 | PN.PCM_ITS ---
History of Present Illness Date of Service: 09/30/23 Chief Complaint: Chronic venous insufficiency, varicose veins with inflammation and ulceration, venous hypertension with inflammation and ulceration, venous stasis ulcerations?lower extremities bilaterally History of Wound: This is a 58-year-old male who presented with severe venous disease in his lower extremities bilaterally. He does not speak [place]. He was accompanied by a friend, who serves as an inspector brake lining. Medical records have been obtained from Dr. Ender Ruiz, vascular surgeon, which have been reviewed. It appears as though the patient has a longstanding history of venous disease in his lower extremities bilaterally. He has recently developed ulcerations near the medial malleoli bilaterally. Bleeding occurred from the ulceration near the left medial malleolus. Patient presented to an emergency department, where the bleeding site was stitched . Patient was referred to Dr. Ender Ruiz, who evaluated the patient, and subsequently performed ultrasound- guided injection sclerotherapy near the ulceration near the left medial malleolus in an effort to ameliorate the high venous pressure responsible for the ulceration and bleeding. According to the records reviewed, Dr. 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 The patient is active. He sleeps on a flat ma ttress. He denies a history of deep vein thrombosis. Patient is otherwise generally healthy. Subjective Subjective Mr. Scott Musa is a 58-year-old male presenting to the [facility] for follow-up evaluation to bilateral full-thickness ankle wounds. Patient has been doing home dressing changes. He did get his lab work and is anticipating his results. Patient denies any increasing drainage to the bilateral leg wounds. He denies any trauma. Denies constitutional symptoms. No other pedal complaints at this time. Objective Data Objective Data Vital Signs: Vital Signs Temp Pulse Resp BP O2 Del Method 97.6 F L 82 18 165/91 H Room Air 09/28/23 00:38 09/30/23 10:26 09/30/23 10:26 09/30/23 10:09/30/23 10:26 Oxygen Delivery Method Room Air Weight: 70 kg Body Mass Index (BMI) 25.0 Physical Exam Narrative Vascular: DP and PT pulses are palpable. CFT is brisk. Nonpitting edema appreciated to the bilateral lower extremity. Evidence of palpable calcifications appreciated to the bilateral legs. Neurological: Light touch intact. Patient response to painful stimuli. Dermatological: Nonpitting edema appreciated bilateral lower extremity with blanchable erythema. No sign of infection. The right full-thickness ulceration measures 1.7 x 1. x 0.1 cm. The left lower extremity full-thickness ulceration measures 2.0 x 2.8 x 0.1 cm. Both wounds are granular nature with no sign of infection. Excisional debridement down to and including subcutaneous tissue with a number 5 mm dermal curette to the right medial ankle wound without incident. Predebridement measurement is 1.4 x 0.8 x 0.1 cm. Postdebridement measurement is 1.7 x 1.0 x 0.1 cm. Excisional debridement down to and including subcutaneous tissue with number 5 mm dermal curette to the left medial ankle without incident. Predebridement measurement is 1.8 x 2.6 x 0.1 cm. Postdebridement measurement is 2.0 x 2.8 x 0.1 cm. Musculoskeletal: No strength 5 out of 5 in all quadrants bilateral. Mild to moderate palpatory tenderness appreciated to the right full-thickness ulceration. Mild palpatory tenderness appreciated to the left full-thickness ulceration. No pain with calf compression. Debridement Note Debridement Note Debridement Free Text: Excisional debridement down to and including subcutaneous tissue with a number 5 mm dermal curette to the right medial ankle wound without incident. Predebridement measurement is 1.4 x 0.8 x 0.1 cm. Postdebridement measurement is 1.7 x 1.0 x 0.1 cm. Excisional debridement down to and including subcutaneous tissue with number 5 mm dermal curette to the left medial ankle without incident. Predebridement measurement is 1.8 x 2.6 x 0.1 cm. Postdebridement measurement is 2.0 x 2.8 x 0.1 cm. Post-Debridement Measurements and Additional Note: Post-Debridement Measurements/Treatment - Nurse 1 - General Ulcer Assessment Start: 09/30/23 10:26 Freq: Status: Active Protocol: DELVIN.LOWEXT Activity Type Activity Date Activity User E-sign Co-sign Detail Recorded Client Recorded Date Recorded By Document 09/30/23 10:26 KW Desktop 09/30/23 10:34 KW 09/30/23 10:26 - Today's Visit Information Type of service Follow-up Visit (Physician/[employer] ) Arrival Mode Ambulatory Patient Identification Verified (Name & Yes ) Height and Weight Body Mass Index (BMI) 25.0 BMI Classification Overweight Vital Signs Pulse Rate (60-100) 82 Pulse Location Monitor Respiratory Rate (12-18) 18 Respiratory rate source Observation Oxygen Delivery Method Room Air Blood Pressure (90/60-120/80) 165/91 H Blood Pressure Mean (mm Hg) 115 Source Monitor Position Sitting Blood Pressure Location Left Arm History Since Last Visit- (Skip if this is Patient's initial visit) Have you changed medications since your No last visit? Any new allergies or adverse reactions No Had a fall/change in ADL's that may No increase risk of falls Signs or symptoms of abuse and/or No neglect since last visit Have you been in the hospital since your No last visit? Has dressing in place as prescribed Yes Has compression in place as prescribed Yes Has offloadiing in place as prescribed No Experienced any changes in pain level or No management Left Footwear Regular Shoe Right Footwear Regular Shoe Pain Scale: 0-10 Numeric Is Patient Pain Free? Yes - Nurse 1 - General Ulcer Measurement Start: 09/30/23 10:26 Freq: Status: Active Protocol: Activity Type Activity Date Activity User E-sign Co-sign Detail Recorded Client Recorded Date Recorded By Document 09/30/23 10:26 KW Desktop 09/30/23 10:34 KW 09/30/23 10:26 Wound Center Nurse 1 #1 L Medial Ankle -Current Size (cm) - Length 3 -Current Size (cm) - Width 3.2 -Current Size (cm) - Depth 0.2 -Total Square Cm 9.6 -Exudate Amt Small -Exudate Type Serosanguineous -Wound Margin Distinct, Outline Attached -Granulation Amt Medium (34-66%) -Granulation Quality [place] -Necrosis Amt Small (1-33%) -Necrotic Tissue Type Adherent Slough -Texture (Irina-wound Skin Appearance) Assessed -Moisture (Irina-wound Skin Appearance) Assessed -Color (Irina-wound Skin Appearance) Assessed -Temperature (Irina-wound Skin No Abnormality Appearance) (Pt Warm) -Ulcer Cleansing Rinsed/ Irrigated with Saline -Anesthetic Used 5% Lidocaine Gel # 2 R Medial Ankle -Current Size (cm) - Length 1.7 -Current Size (cm) - Width 1.1 -Current Size (cm) - Depth 0.1 -Total Square Cm 1.87 -Exudate Amt Small -Exudate Type Serosanguineous -Wound Margin Distinct, Outline Attached -Granulation Amt Medium (34-66%) -Granulation Quality [place] -Necrosis Amt Medium (34-66%) -Necrotic Tissue Type Adherent Slough -Texture (Irina-wound Skin Appearance) Assessed -Moisture (Irina-wound Skin Appearance) Assessed -Color (Irina-wound Skin Appearance) Assessed -Temperature (Irina-wound Skin No Abnormality Appearance) (Pt Warm) -Ulcer Cleansing Rinsed/ Irrigated with Saline -Anesthetic Used 5% Lidocaine Gel Right Calf (cm) 35 Right Ankle (cm) 21 Left Calf (cm) 35.6 Left Ankle (cm) 22.5 WC - Nurse 2 - General Ulcer CM Notes Start: 09/30/23 10:26 Freq: Status: Active Protocol: Activity Type Activity Date Activity User E-sign Co-sign Detail Recorded Client Recorded Date Recorded By Document 09/30/23 10:49 Laptop 09/30/23 10:54 09/30/23 10:49 Wound Center Nurse 2 #1 L Medial Ankle -Time 10:49 -Correct Patient Yes -Correct Side, Site, Position Yes -Correct Procedure Yes -Procedure Performed Yes -Type of Procedure Debridement -Clinical Debridement Subcutaneous -Tissue Removed Subcutaneous -Post Debridement (cm) - Length 2.0 -Post Debridement (cm) - Width 2.8 -Post Debridement (cm) - Depth 0.1 -Total Square (Post) (cm) 5.60 -Area of Debridement (cm) - Length 2.0 -Area of Debridement (cm) - Width 2.8 -Total Square (Area) (cm) 5.60 -Tunneling No -Undermining/Tunneling No -Circular Undermining No -Wound/Ulcer Outcome Not Healed -Ulcer Cleansing Rinsed/ Irrigated with Saline -Foul Odor after Cleansing No -Bioengineered Tissue No -Bleeding Controlled with Pressure -Treatment Response Procedure Tolerated Well -Offloading No -Debridement - Subq, 1st 20sq cm No # 2 R Medial Ankle -Time 10:49 -Correct Patient Yes -Correct Side, Site, Position Yes -Correct Procedure Yes -Procedure Performed Yes -Type of Procedure Debridement -Clinical Debridement Subcutaneous -Tissue Removed Subcutaneous -Post Debridement (cm) - Length 1.7 -Post Debridement (cm) - Width 1.0 -Post Debridement (cm) - Depth 0.1 -Total Square (Post) (cm) 1.70 -Area of Debridement (cm) - Length 1.7 -Area of Debridement (cm) - Width 1.0 -Total Square (Area) (cm) 1.70 -Tunneling No -Undermining/Tunneling No -Circular Undermining No -Wound/Ulcer Outcome Not Healed -Ulcer Cleansing Rinsed/ Irrigated with Saline -Foul Odor after Cleansing No -Bioengineered Tissue No -Bleeding Controlled with Pressure -Treatment Response Procedure Tolerated Well -Offloading No -Debridement - Subq, 1st 20sq cm Yes Pain Scale: 0-10 Numeric Is Patient Pain Free? 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 All findings were discussed with the patient. All questions were answered to the patient's satisfaction. Excisional debridement down to and including subcutaneous tissue with a number 5 mm dermal curette to the right medial ankle wound without incident. Predebridement measurement is 1.4 x 0.8 x 0.1 cm. Postdebridement measurement is 1.7 x 1.0 x 0.1 cm. Excisional debridement down to and including subcutaneous tissue with number 5 mm dermal curette to the left medial ankle without incident. Predebridement measurement is 1.8 x 2.6 x 0.1 cm. Postdebridement measurement is 2.0 x 2.8 x 0.1 cm. Santyl was applied to both dressings followed by moist saline gauze dry sterile dressing and a double layer Tubigrip was donned. Patient will continue home dressing changes as instructed. He was understanding of this. Follow-up at the wound care center with Dr. Carrington in 2 week. (2) Non-pressure ulcer of left lower extremity with fat layer exposed: CODE(S): L97.922 - Non-pressure chronic ulcer of unspecified part of left lower leg with fat layer exposed (3) Venous stasis ulcer: CODE(S): I83.009 - Varicose veins of unspecified lower extremity with ulcer of unspecified site; L97.909 - Non-pressure chronic ulcer of unspecified part of unspecified lower leg with unspecified severity QUALIFIERS: Venous stasis ulcer site: ankle Laterality: right Non-pressure ulcer stage: with fat layer exposed (4) Venous hypertension, chronic, with ulcer and inflammation: CODE(S): I87.339 - Chronic venous hypertension (idiopathic) with ulcer and inflammation of unspecified lower extremity QUALIFIERS: Laterality: bilateral Qualified Code(s): I87.333 - Chronic venous hypertension (idiopathic) with ulcer and inflammation of bilateral lower extremity
[2023-10-14 10:28] VITALS: BP 145/78; PULSE 91; RESP 18; TEMP 37; BMI 25.0
--- NOTE | 2023-10-14 11:27 | PN.PCM_ITS ---
History of Present Illness Date of Service: 10/14/23 Chief Complaint: Chronic venous insufficiency, varicose veins with inflammation and ulceration, venous hypertension with inflammation and ulceration, venous stasis ulcerations?lower extremities bilaterally History of Wound: This is a 58-year-old male who presented with severe venous disease in his lower extremities bilaterally. He does not speak Spanish. He was accompanied by a friend, who serves as an poultry inspector. Medical records have been obtained from Dr. Ender Ruiz, vascular surgeon, which have been reviewed. It appears as though the patient has a longstanding history of venous disease in his lower extremities bilaterally. He has recently developed ulcerations near the medial malleoli bilaterally. Bleeding occurred from the ulceration near the left medial malleolus. Patient presented to an emergency department, where the bleeding site was stitched . Patient was referred to Dr. Ender Ruiz, who evaluated the patient, and subsequently performed ultrasound- guided injection sclerotherapy near the ulceration near the left medial malleolus in an effort to ameliorate the high venous pressure responsible for the ulceration and bleeding. According to the records reviewed, Dr. 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 The patient is active. He sleeps on a flat ma ttress. He denies a history of deep vein thrombosis. Patient is otherwise generally healthy. Subjective Subjective Mr. Scott Musa is a 58-year-old male presenting to the [facility] for follow-up evaluation to bilateral full-thickness ankle wounds. Patient has been doing home dressing changes. He did get his lab work and is anticipating his results. Patient denies any increasing drainage to the bilateral leg wounds. He denies any trauma. Denies constitutional symptoms. No other pedal complaints at this time. Objective Data Objective Data Vital Signs: Vital Signs Temp Pulse Resp BP O2 Del Method 98.6 F 91 18 145/78 H Room Air 10/14/23 10:10/14/23 10:10/14/23 10:10/14/23 10:10/14/23 10:28 Oxygen Delivery Method Room Air Weight: 70 kg Body Mass Index (BMI) 25.0 Physical Exam Narrative Vascular: DP and PT pulses are palpable. CFT is brisk. Nonpitting edema appreciated to the bilateral lower extremity. Evidence of palpable calcifications appreciated to the bilateral legs. Neurological: Light touch intact. Patient response to painful stimuli. Dermatological: Nonpitting edema appreciated bilateral lower extremity with blanchable erythema. No sign of infection. The right full-thickness ulceration measures 0.9 x 0.5 x 0.1 cm. The left lower extremity full-thickness ulceration measures 1.7 x 2.5 x 0.1 cm. Both wounds are granular nature with no sign of infection. Excisional debridement down to and including subcutaneous tissue with a number 5 mm dermal curette to the right medial ankle wound without incident. Predebridement measurement is 0.7 x 0.3 x 0.1 cm. Postdebridement measurement is 0.9 x 0.5 x 0.1 cm. Excisional debridement down to and including subcutaneous tissue with number 5 mm dermal curette to the left medial ankle without incident. Predebridement measurement is 1.5 x 2.4 x 0.1 cm. Postdebridement measurement is 1.7 x 2.5 x 0.1 cm. Musculoskeletal: No strength 5 out of 5 in all quadrants bilateral. Mild to moderate palpatory tenderness appreciated to the right full-thickness ulceration. Mild palpatory tenderness appreciated to the left full-thickness ulceration. No pain with calf compression. Debridement Note Debridement Note Debridement Free Text: Excisional debridement down to and including subcutaneous tissue with a number 5 mm dermal curette to the right medial ankle wound without incident. Predebridement measurement is 0.7 x 0.3 x 0.1 cm. Postdebridement measurement is 0.9 x 0.5 x 0.1 cm. Excisional debridement down to and including subcutaneous tissue with number 5 mm dermal curette to the left medial ankle without incident. Predebridement measurement is 1.5 x 2.4 x 0.1 cm. Postdebridement measurement is 1.7 x 2.5 x 0.1 cm. Post-Debridement Measurements and Additional Note: Post-Debridement Measurements/Treatment WC - Nurse 1 - General Ulcer Assessment Start: 09/30/23 10:26 Freq: Status: Active Protocol: DELVIN.LOWEXT Activity Type Activity Date Activity User E-sign Co-sign Detail Recorded Client Recorded Date Recorded By Document 09/30/23 10:26 KW Desktop 09/30/23 10:34 KW Document 10/14/23 10:28 KW Desktop 10/14/23 10:37 KW 09/30/23 10/14/23 10:26 10:28 - Today's Visit Information Type of service Follow-up Visit Follow-up Visit (Physician/FILTER PRESS TENDER HEAD (Physician/FILTER PRESS TENDER HEAD ) ) Arrival Mode Ambulatory Ambulatory Accompanied by friend Patient Identification Verified (Name & Yes Yes ) Height and Weight Body Mass Index (BMI) 25.0 25.0 BMI Classification Overweight Overweight Vital Signs Temperature (97.8 F-99.1 F) 98.6 F Temperature Source Temporal Pulse Rate (60-100) 82 91 Pulse Location Monitor Monitor Respiratory Rate (12-18) 18 18 Respiratory rate source Observation Observation Oxygen Delivery Method Room Air Room Air Blood Pressure (90/60-120/80) 165/91 H 145/78 H Blood Pressure Mean (mm Hg) 115 100 Source Monitor Monitor Position Sitting Semi-Fowlers Blood Pressure Location Left Arm Left Arm History Since Last Visit- (Skip if this is Patient's initial visit) Have you changed medications since your No No last visit? Any new allergies or adverse reactions No No Had a fall/change in ADL's that may No No increase risk of falls Signs or symptoms of abuse and/or No No neglect since last visit Have you been in the hospital since your No No last visit? Has dressing in place as prescribed Yes Yes Has compression in place as prescribed Yes No Has offloadiing in place as prescribed No N/A Experienced any changes in pain level or No No management Left Footwear Regular Shoe Regular Shoe Right Footwear Regular Shoe Regular Shoe Pain Scale: 0-10 Numeric Is Patient Pain Free? Yes Yes - Nurse 1 - General Ulcer Measurement Start: 09/30/23 10:26 Freq: Status: Active Protocol: Activity Type Activity Date Activity User E-sign Co-sign Detail Recorded Client Recorded Date Recorded By Document 09/30/23 10:26 KW Desktop 09/30/23 10:34 KW Document 10/14/23 10:28 KW Desktop 10/14/23 10:37 KW 09/30/23 10/14/23 10:26 10:28 Wound Center Nurse 1 #1 L Medial Ankle -Current Size (cm) - Length 3 1.1 -Current Size (cm) - Width 3.2 2.4 -Current Size (cm) - Depth 0.2 0.1 -Total Square Cm 9.6 2.64 -Date of Last Picture (Recall this 10/14/23 field) -Photo Taken Yes -Exudate Amt Small Small -Exudate Type Serosanguineous Serosanguineous -Wound Margin Distinct, Distinct, Outline Outline Attached Attached -Granulation Amt Medium (34-66%) Small (1-33%) -Granulation Quality [place] Red -Necrosis Amt Small (1-33%) Small (1-33%) -Necrotic Tissue Type Adherent Slough Adherent Slough -Texture (Irina-wound Skin Appearance) Assessed Assessed,Rash -Moisture (Irina-wound Skin Appearance) Assessed Assessed -Color (Irina-wound Skin Appearance) Assessed Assessed -Temperature (Irina-wound Skin No Abnormality No Abnormality Appearance) (Pt Warm) (Pt Warm) -Tenderness on Palpation (Irina-wound Yes Skin Appearance) -Ulcer Cleansing Rinsed/ Rinsed/ Irrigated with Irrigated with Saline Saline -Foul Odor after Cleansing No -Anesthetic Used 5% Lidocaine 5% Lidocaine Gel Gel # 2 R Medial Ankle -Current Size (cm) - Length 1.7 1.3 -Current Size (cm) - Width 1.1 0.6 -Current Size (cm) - Depth 0.1 0.1 -Total Square Cm 1.87 0.78 -Date of Last Picture (Recall this 10/14/23 field) -Photo Taken Yes -Exudate Amt Small Small -Exudate Type Serosanguineous Serosanguineous -Wound Margin Distinct, Distinct, Outline Outline Attached Attached -Granulation Amt Medium (34-66%) Medium (34-66%) -Granulation Quality [place] Red -Necrosis Amt Medium (34-66%) Small (1-33%) -Necrotic Tissue Type Adherent Slough Adherent Slough -Texture (Irina-wound Skin Appearance) Assessed Assessed -Moisture (Irina-wound Skin Appearance) Assessed Assessed -Color (Irina-wound Skin Appearance) Assessed Assessed -Temperature (Irina-wound Skin No Abnormality No Abnormality Appearance) (Pt Warm) (Pt Warm) -Tenderness on Palpation (Irina-wound Yes Skin Appearance) -Ulcer Cleansing Rinsed/ Rinsed/ Irrigated with Irrigated with Saline Saline -Anesthetic Used 5% Lidocaine 5% Lidocaine Gel Gel Right Calf (cm) 35 35 Right Ankle (cm) 21 21 Left Calf (cm) 35.6 36 Left Ankle (cm) 22.5 21.5 WC - Nurse 2 - General Ulcer CM Notes Start: 09/30/23 10:26 Freq: Status: Active Protocol: Activity Type Activity Date Activity User E-sign Co-sign Detail Recorded Client Recorded Date Recorded By Document 09/30/23 10:49 Laptop 09/30/23 10:54 Document 10/14/23 10:47 Laptop 10/14/23 10:49 09/30/23 10/14/23 10:49 10:47 Wound Center Nurse 2 #1 L Medial Ankle -Time 10:49 10:47 -Correct Patient Yes Yes -Correct Side, Site, Position Yes Yes -Correct Procedure Yes Yes -Procedure Performed Yes Yes -Type of Procedure Debridement Debridement -Clinical Debridement Subcutaneous Subcutaneous -Tissue Removed Subcutaneous Subcutaneous -Post Debridement (cm) - Length 2.0 1.7 -Post Debridement (cm) - Width 2.8 2.5 -Post Debridement (cm) - Depth 0.1 0.1 -Total Square (Post) (cm) 5.60 4.25 -Area of Debridement (cm) - Length 2.0 1.7 -Area of Debridement (cm) - Width 2.8 2.5 -Total Square (Area) (cm) 5.60 4.25 -Tunneling No No -Undermining/Tunneling No No -Circular Undermining No No -Wound/Ulcer Outcome Not Healed Not Healed -Ulcer Cleansing Rinsed/ Rinsed/ Irrigated with Irrigated with Saline Saline -Foul Odor after Cleansing No No -Bioengineered Tissue No No -Bleeding Controlled with Pressure Pressure -Treatment Response Procedure Procedure Tolerated Well Tolerated Well -Offloading No No -Debridement - Subq, 1st 20sq cm No No # 2 R Medial Ankle -Time 10:49 10:48 -Correct Patient Yes Yes -Correct Side, Site, Position Yes Yes -Correct Procedure Yes Yes -Procedure Performed Yes Yes -Type of Procedure Debridement Debridement -Clinical Debridement Subcutaneous Subcutaneous -Tissue Removed Subcutaneous Subcutaneous -Post Debridement (cm) - Length 1.7 0.9 -Post Debridement (cm) - Width 1.0 0.5 -Post Debridement (cm) - Depth 0.1 0.1 -Total Square (Post) (cm) 1.70 0.45 -Area of Debridement (cm) - Length 1.7 0.9 -Area of Debridement (cm) - Width 1.0 0.5 -Total Square (Area) (cm) 1.70 0.45 -Tunneling No No -Undermining/Tunneling No No -Circular Undermining No No -Wound/Ulcer Outcome Not Healed Not Healed -Ulcer Cleansing Rinsed/ Rinsed/ Irrigated with Irrigated with Saline Saline -Foul Odor after Cleansing No No -Bioengineered Tissue No No -Bleeding Controlled with Pressure Pressure -Treatment Response Procedure Procedure Tolerated Well Tolerated Well -Offloading No No -Debridement - Subq, 1st 20sq cm Yes Yes Pain Scale: 0-10 Numeric Is Patient Pain Free? Yes Yes - Nurse 3 - General Ulcer D/C NN Start: 09/30/23 10:26 Freq: Status: Active Protocol: Activity Type Activity Date Activity User E-sign Co-sign Detail Recorded Client Recorded Date Recorded By Document 10/14/23 10:54 KW Desktop 10/14/23 10:57 KW 10/14/23 10:54 Wound Care Center Nurse 3 #1 L Medial Ankle -Ulcer Cleansing Rinsed/ Irrigated with Saline -Primary Dressing Covered/Secured with Dry Gauze & Roll Gauze, Secured with Tape # 2 R Medial Ankle -Primary Dressing Covered/Secured with Dry Gauze & Roll Gauze, Secured with Tape Right -Tubular Bandage Double Layer -Size of Tubigrip Used Size D -Size D ($) 2 Left -Tubular Bandage Double Layer -Size of Tubigrip Used Size D -Size D ($) 2 Pain Scale: 0-10 Numeric Is Patient Pain Free? Yes WC - Visit Discharge Discharge Condition Stable Ambulatory Status Ambulatory Transportation Private Auto Medication Reconcilliation completed & No provided to patient/care provider Clinical Summary of Care Provided Yes Assessment/Plan Assessment/Plan (1) Non-pressure chronic ulcer of unspecified part of right lower leg with fat layer exposed: CODE(S): L97.912 - Non-pressure chronic ulcer of unspecified part of right lower leg with fat layer exposed PLAN: Patient was examined and evaluated. All findings were discussed with the patient. All questions were answered to the patient's satisfaction. Excisional debridement down to and including subcutaneous tissue with a number 5 mm dermal curette to the right medial ankle wound without incident. Predebridement measurement is 0.7 x 0.3 x 0.1 cm. Postdebridement measurement is 0.9 x 0.5 x 0.1 cm. Excisional debridement down to and including subcutaneous tissue with number 5 mm dermal curette to the left medial ankle without incident. Predebridement measurement is 1.5 x 2.4 x 0.1 cm. Postdebridement measurement is 1.7 x 2.5 x 0.1 cm. Bilateral lower extremity white clean and patted dry. The ulceration was david ssed with Santyl, saline moist gauze and dry sterile dressing with single-layer Tubigrip. Patient will continue to do daily dressing changes at home and will follow-up in 3 weeks. Follow-up at the wound care center with Dr. Carrington in 3 week. (2) Non-pressure ulcer of left lower extremity with fat layer exposed: CODE(S): L97.922 - Non-pressure chronic ulcer of unspecified part of left lower leg with fat layer exposed (3) Venous hypertension, chronic, with ulcer and inflammation: CODE(S): I87.339 - Chronic venous hypertension (idiopathic) with ulcer and inflammation of unspecified lower extremity QUALIFIERS: Laterality: bilateral Qualified Code(s): I87.333 - Chronic venous hypertension (idiopathic) with ulcer and inflammation of bilateral lower extremity
== END 2023-10-28 23:59 | disposition home or self-care (01) ==
LOC: WC 10:30
PROVIDERS: Referring Provider Surgery Vascular Surgery; Visit Provider Podiatrist Foot & Ankle Surgery
DX: I83.223 Varicose veins of left lower extremity with both ulcer of ankle and inflammation (principal); L97.312 Non-pressure chronic ulcer of right ankle with fat layer exposed; L97.322 Non-pressure chronic ulcer of left ankle with fat layer exposed; I83.213 Varicose veins of right lower extremity with both ulcer of ankle and inflammation
CPT/HCPCS: 11042

== ENCOUNTER 2023-11-04 10:29 | Outpatient (RCR) | payer OTHER, SELFPAY ==
[2023-10-29 00:53] VITALS: BP 145/78; PULSE 91; RESP 18; TEMP 37; BMI 25.0
[2023-11-04 10:40] VITALS: BP 157/72; PULSE 90; RESP 18; TEMP 36.4; BMI 25.0
--- NOTE | 2023-11-04 11:21 | PCM.WC.PN ---
History of Present Illness Date of Service: 11/04/23 Chief Complaint: Chronic venous insufficiency, varicose veins with inflammation and ulceration, venous hypertension with inflammation and ulceration, venous stasis ulcerations?lower extremities bilaterally History of Wound: This is a 58-year-old male who presented with severe venous disease in his lower extremities bilaterally. He does not speak [place]. He was accompanied by a friend, who serves as an water taxi boat mate. Medical records have been obtained from Dr. Ender Ruiz, vascular surgeon, which have been reviewed. It appears as though the patient has a longstanding history of venous disease in his lower extremities bilaterally. He has recently developed ulcerations near the medial malleoli bilaterally. Bleeding occurred from the ulceration near the left medial malleolus. Patient presented to an emergency department, where the bleeding site was stitched. Patient was referred to Dr. Ender Ruiz, who evaluated the patient, and subsequently performed ultrasound-guided injection sclerotherapy near the ulceration near the left medial malleolus in an effort to ameliorate the high venous pressure responsible for the ulceration and bleeding. According to the records reviewed, Dr. 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 The patient is active. He sleeps on a flat mattress. He denies a history of deep vein thrombosis. Patient is otherwise generally healthy. Subjective Subjective Mr Scott Musa 58-year-old male presenting to [facility] wound care center today for follow-up and evaluation of bilateral ankle ulcerations. Patient saw vascular Dr. Ruiz who performed ablations to his veins to bilateral lower extremity. He expresses great relief to the lower extremity area. He has been doing his home dressing change with Santyl, moist gauze and dry sterile dressing and Tubigrip's. When questioned about compressive stockings, the patient states that were too tight and will bring them in during his next visit. He denies trauma. Denies constitutional symptoms. No other pedal complaints at this time. Objective Data Objective Data Vital Signs: Vital Signs Temp Pulse Resp BP 97.6 F L 90 18 157/72 H 11/04/23 10:40 11/04/23 10:40 11/04/23 10:40 11/04/23 10:40 Weight: 70 kg Body Mass Index (BMI) 25.0 Physical Exam Narrative Vascular: DP and PT pulses are palpable. CFT is brisk. Nonpitting edema appreciated to the bilateral lower extremity. Evidence of palpable calcifications appreciated to the bilateral legs. Neurological: Light touch intact. Patient response to painful stimuli. Dermatological: Nonpitting edema appreciated bilateral lower extremity with blanchable erythema. No sign of infection. The right full-thickness ulceration is healed. The left lower extremity full-thickness ulceration measures 1.4 x 0.4 x 0.1 cm. Both wounds are granular nature with no sign of infection. Excisional debridement down to and including subcutaneous tissue with number 5 mm dermal curette to the left medial ankle without incident. Predebridement measurement is 1.2 x 0.3 x 0.1 cm. Postdebridement measurement is 1.4 x 0.4 x 0.1 cm. Musculoskeletal: No strength 5 out of 5 in all quadrants bilateral. Mild to moderate palpatory tenderness appreciated to the right full-thickness ulceration. Mild palpatory tenderness appreciated to the left full-thickness ulceration. No pain with calf compression. Debridement Note Debridement Note Debridement Free Text: Excisional debridement down to and including subcutaneous tissue with number 5 mm dermal curette to the left medial ankle without incident. Predebridement measurement is 1.2 x 0.3 x 0.1 cm. Postdebridement measurement is 1.4 x 0.4 x 0.1 cm. Post-Debridement Measurements and Additional Note: Post-Debridement Measurements/Treatment - Nurse 1 - General Ulcer Assessment Start: 11/04/23 10:40 Freq: Status: Active Protocol: DELVIN.SAMANTHAEXKat Activity Type Activity Date Activity User E-sign Co-sign Detail Recorded Client Recorded Date Recorded By Document 11/04/23 10:40 PL Tablet 11/04/23 10:47 PL 11/04/23 10:40 - Today's Visit Information Type of service Follow-up Visit (Physician/INFORMATION SECURITY ASSOCIATE ) Arrival Mode Ambulatory Transfer Assistance None Patient Identification Verified (Name & No ) Patient Requires Transmission-Based No Precautions Safety Precautions NA Height and Weight Body Mass Index (BMI) 25.0 BMI Classification Overweight Vital Signs Temperature (97.8 F-99.1 F) 97.6 F L Temperature Source Temporal Pulse Rate (60-100) 90 Respiratory Rate (12-18) 18 Blood Pressure (90/60-120/80) 157/72 H Blood Pressure Mean (mm Hg) 100 History Since Last Visit- (Skip if this is Patient's initial visit) Have you changed medications since your No last visit? Signs or symptoms of abuse and/or No neglect since last visit Have you been in the hospital since your No last visit? Has dressing in place as prescribed Yes Has compression in place as prescribed Yes Has offloadiing in place as prescribed N/A Experienced any changes in pain level or No management Pain Scale: 0-10 Numeric Is Patient Pain Free? Yes - Nurse 1 - General Ulcer Measurement Start: 11/04/23 10:40 Freq: Status: Active Protocol: Activity Type Activity Date Activity User E-sign Co-sign Detail Recorded Client Recorded Date Recorded By Document 11/04/23 10:40 PL Tablet 11/04/23 10:47 PL 11/04/23 10:40 Wound Center Nurse 1 # 2 R Medial Ankle -Combined with other wound No -Current Size (cm) - Length 0.5 -Current Size (cm) - Width 0.5 -Current Size (cm) - Depth 1 -Total Square Cm 0.25 #1 L Medial Ankle -Combined with other wound No -Current Size (cm) - Length 1.0 -Current Size (cm) - Width 0.5 -Current Size (cm) - Depth 0.1 -Total Square Cm 0.50 - Nurse 2 - General Ulcer CM Notes Start: 11/04/23 10:40 Freq: Status: Active Protocol: Activity Type Activity Date Activity User E-sign Co-sign Detail Recorded Client Recorded Date Recorded By Document 11/04/23 10:53 Laptop 11/04/23 10:57 11/04/23 10:53 Wound Center Nurse 2 # 2 R Medial Ankle -Correct Patient No -Correct Side, Site, Position No -Correct Procedure No -Procedure Performed No -Post Debridement (cm) - Length 0 -Post Debridement (cm) - Width 0 -Post Debridement (cm) - Depth 0 -Total Square (Post) (cm) 0 -Area of Debridement (cm) - Length 0 -Area of Debridement (cm) - Width 0 -Total Square (Area) (cm) 0 -Wound/Ulcer Outcome Healed- Epithelialized #1 L Medial Ankle -Time 10:53 -Correct Patient Yes -Correct Side, Site, Position Yes -Correct Procedure Yes -Procedure Performed Yes -Type of Procedure Debridement -Clinical Debridement Subcutaneous -Tissue Removed Subcutaneous -Post Debridement (cm) - Length 1.4 -Post Debridement (cm) - Width 0.4 -Post Debridement (cm) - Depth 0.1 -Total Square (Post) (cm) 0.56 -Area of Debridement (cm) - Length 1.4 -Area of Debridement (cm) - Width 0.4 -Total Square (Area) (cm) 0.56 -Tunneling No -Undermining/Tunneling No -Circular Undermining No -Wound/Ulcer Outcome Not Healed -Ulcer Cleansing Rinsed/ Irrigated with Saline -Foul Odor after Cleansing No -Bioengineered Tissue No -Bleeding Controlled with Pressure -Treatment Response Procedure Tolerated Well -Offloading No -Debridement - Subq, 1st 20sq cm Yes Pain Scale: 0-10 Numeric Is Patient Pain Free? Yes - Nurse 3 - General Ulcer D/C NN Start: 11/04/23 10:40 Freq: Status: Active Protocol: Activity Type Activity Date Activity User E-sign Co-sign Detail Recorded Client Recorded Date Recorded By Document 11/04/23 11:11 Desktop 11/04/23 11:12 11/04/23 11:11 Wound Care Center Nurse 3 #1 L Medial Ankle -Ulcer Cleansing Not Cleansed -Foul Odor after Cleansing No -Primary Dressing Applied Mepilex Border -Mepilex Border 2 Left -Lotion applied to leg before No compression wrap -Tubular Bandage Double Layer -Size of Tubigrip Used Size D -Size D ($) 2 Pain Scale: 0-10 Numeric Is Patient Pain Free? Yes Teaching: Wound Center Compression Wraps & Stockings -Person Taught Patient,Family -Teaching Method Discussion -Response to teaching Verbalize understanding Dressing Your Wound -Person Taught Patient,Family -Teaching Method Discussion -Response to teaching Verbalize understanding - Visit Discharge Discharge Condition Stable Ambulatory Status Ambulatory Transportation Private Auto Medication Reconcilliation completed & Yes provided to patient/care provider Clinical Summary of Care Provided Yes Assessment/Plan Assessment/Plan (1) Non-pressure ulcer of left lower extremity with fat layer exposed: CODE(S): L97.922 - Non-pressure chronic ulcer of unspecified part of left lower leg with fat layer exposed PLAN: Patient was examined and evaluated. All findings were discussed with the patient. All questions were answered to the patient's satisfaction. Excisional debridement down to and including subcutaneous tissue with number 5 mm dermal curette to the left medial ankle without incident. Predebridement measurement is 1.2 x 0.3 x 0.1 cm. Postdebridement measurement is 1.4 x 0.4 x 0.1 cm. Left lower extremity was dressed with Santyl, moist gauze, dry sterile dressing and single-layer Tubigrip donned to bilateral lower extremity. Patient will bring in his compression stockings at next follow-up in 3 weeks. He left the office pleased with his visit. Follow-up at the wound care center with Dr. Carrington in 3 week. (2) Venous stasis ulcer of left ankle: CODE(S): I83.023 - Varicose veins of left lower extremity with ulcer of ankle; L97.329 - Non-pressure chronic ulcer of left ankle with unspecified severity QUALIFIERS: Varicose vein presence: with varicose veins Non-pressure ulcer stage: with fat layer exposed Qualified Code(s): I83.023 - Varicose veins of left lower extremity with ulcer of ankle; L97.322 - Non-pressure chronic ulcer of left ankle with fat layer exposed
== END 2023-11-26 23:59 | disposition home or self-care (01) ==
LOC: WC 10:29
PROVIDERS: Referring Provider Surgery Vascular Surgery; Visit Provider Podiatrist Foot & Ankle Surgery
DX: I83.223 Varicose veins of left lower extremity with both ulcer of ankle and inflammation (principal); I83.213 Varicose veins of right lower extremity with both ulcer of ankle and inflammation; L97.312 Non-pressure chronic ulcer of right ankle with fat layer exposed; L97.322 Non-pressure chronic ulcer of left ankle with fat layer exposed
CPT/HCPCS: 11042

== ENCOUNTER 2023-12-02 10:26 | Outpatient (RCR) | payer OTHER, SELFPAY ==
[2023-11-27 00:36] VITALS: BP 157/72; PULSE 90; RESP 18; TEMP 36.4; BMI 25.0
[2023-12-02 10:39] VITALS: BP 141/75; PULSE 98; RESP 20; TEMP 36.6; BMI 25.0
--- NOTE | 2023-12-02 12:02 | PCM.WC.PN ---
History of Present Illness Date of Service: 12/02/23 Chief Complaint: Chronic venous insufficiency, varicose veins with inflammation and ulceration, venous hypertension with inflammation and ulceration, venous stasis ulcerations?lower extremities bilaterally History of Wound: This is a 58-year-old male who presented with severe venous disease in his lower extremities bilaterally. He does not speak [place]. He was accompanied by a friend, who serves as an director of speech pathology. Medical records have been obtained from Dr. Ender Ruiz, vascular surgeon, which have been reviewed. It appears as though the patient has a longstanding history of venous disease in his lower extremities bilaterally. He has recently developed ulcerations near the medial malleoli bilaterally. Bleeding occurred from the ulceration near the left medial malleolus. Patient presented to an emergency department, where the bleeding site was stitched. Patient was referred to Dr. Ender Ruiz, who evaluated the patient, and subsequently performed ultrasound-guided injection sclerotherapy near the ulceration near the left medial malleolus in an effort to ameliorate the high venous pressure responsible for the ulceration and bleeding. According to the records reviewed, Dr. 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 The patient is active. He sleeps on a flat mattress. He denies a history of deep vein thrombosis. Patient is otherwise generally healthy. Subjective Subjective Mr Scott Musa 58-year-old male presenting to [facility] wound care center today for follow-up and evaluation of bilateral ankle ulcerations. Patient saw vascular Dr. Ruiz who performed ablations to his veins to bilateral lower extremity. He expresses great relief to the lower extremity area. He has been doing his home dressing change with Santyl, moist gauze and dry sterile dressing and Tubigrip's. When questioned about compressive stockings, the patient states that were too tight and will bring them in during his next visit. He denies trauma. Denies constitutional symptoms. No other pedal complaints at this time. Objective Data Objective Data Vital Signs: Vital Signs Temp Pulse Resp BP 98 F 98 20 H 141/75 H 12/02/23 10:39 12/02/23 10:39 12/02/23 10:39 12/02/23 10:39 Weight: 70 kg Body Mass Index (BMI) 25.0 Physical Exam Narrative Vascular: DP and PT pulses are palpable. CFT is brisk. Nonpitting edema appreciated to the bilateral lower extremity. Evidence of palpable calcifications appreciated to the bilateral legs. Neurological: Light touch intact. Patient response to painful stimuli. Dermatological: Nonpitting edema appreciated bilateral lower extremity without blanchable erythema. No sign of infection. The right and left full-thickness ulceration is healed. The left lower extremity full-thickness ulceration is now healed. Musculoskeletal: No strength 5 out of 5 in all quadrants bilateral. Mild to moderate palpatory tenderness appreciated to the right full-thickness ulceration. Mild palpatory tenderness appreciated to the left full-thickness ulceration. No pain with calf compression. Debridement Note Debridement Note Post-Debridement Measurements and Additional Note: Post-Debridement Measurements/Treatment WC - Nurse 1 - General Ulcer Assessment Start: 12/02/23 10:36 Freq: Status: Active Protocol: WC.LOWEXT Activity Type Activity Date Activity User E-sign Co-sign Detail Recorded Client Recorded Date Recorded By Document 12/02/23 10:39 DL Desktop 12/02/23 10:44 DL 12/02/23 10:39 WC - Today's Visit Information Type of service Follow-up Visit (Physician/STEEP TENDER ) Arrival Mode Ambulatory Transfer Assistance None Patient Identification Verified (Name & Yes ) Patient Requires Transmission-Based No Precautions Height and Weight Body Mass Index (BMI) 25.0 BMI Classification Overweight Vital Signs Temperature (97.8 F-99.1 F) 98 F Temperature Source Temporal Pulse Rate (60-100) 98 Respiratory Rate (12-18) 20 H Respiratory rate source Observation Blood Pressure (90/60-120/80) 141/75 H Blood Pressure Mean (mm Hg) 97 Source Monitor History Since Last Visit- (Skip if this is Patient's initial visit) Have you changed medications since your No last visit? Any new allergies or adverse reactions No Had a fall/change in ADL's that may No increase risk of falls Signs or symptoms of abuse and/or No neglect since last visit Have you been in the hospital since your No last visit? Has dressing in place as prescribed Yes Has compression in place as prescribed Yes Has offloadiing in place as prescribed N/A Experienced any changes in pain level or No management Pain Scale: 0-10 Numeric Is Patient Pain Free? Yes - Nurse 1 - General Ulcer Measurement Start: 12/02/23 10:36 Freq: Status: Active Protocol: Activity Type Activity Date Activity User E-sign Co-sign Detail Recorded Client Recorded Date Recorded By Document 12/02/23 10:39 Desktop 12/02/23 10:44 DL 12/02/23 10:39 Wound Center Nurse 1 #1 L Medial Ankle -Current Size (cm) - Length 0 -Current Size (cm) - Width 0 -Total Square Cm 0 -Photo Taken Yes -Exudate Amt None Present -Wound Margin Flat & Intact -Granulation Amt Large (67-100%) -Granulation Quality [place] -Necrosis Amt None Present (0 %) -Structure Exposed N/A -Texture (Irina-wound Skin Appearance) Scarring -Moisture (Irina-wound Skin Appearance) No Abnormality -Color (Irina-wound Skin Appearance) No Abnormality -Temperature (Irina-wound Skin No Abnormality Appearance) (Pt Warm) -Foul Odor after Cleansing No WC - Nurse 2 - General Ulcer CM Notes Start: 12/02/23 10:36 Freq: Status: Active Protocol: Activity Type Activity Date Activity User E-sign Co-sign Detail Recorded Client Recorded Date Recorded By Document 12/02/23 11:01 [employer] 12/02/23 11:02 12/02/23 11:01 Wound Center Nurse 2 -Correct Patient No -Correct Side, Site, Position No -Correct Procedure No -Procedure Performed No -Post Debridement (cm) - Length 0 -Post Debridement (cm) - Width 0 -Post Debridement (cm) - Depth 0 -Total Square (Post) (cm) 0 -Area of Debridement (cm) - Length 0 -Area of Debridement (cm) - Width 0 -Total Square (Area) (cm) 0 -Wound/Ulcer Outcome Healed- Epithelialized Pain Scale: 0-10 Numeric Is Patient Pain Free? Yes - Nurse 3 - General Ulcer D/C NN Start: 12/02/23 10:36 Freq: Status: Active Protocol: Activity Type Activity Date Activity User E-sign Co-sign Detail Recorded Client Recorded Date Recorded By Document 12/02/23 11:21 [facility] [id number] 12/02/23 11:21 [facility] 12/02/23 11:21 Wound Care Center Nurse 3 ble -Tubular Bandage Double Layer -Size of Tubigrip Used Size E -Size E ($) 2 -Other in new brand Treatment Response Procedure Tolerated Well Pain Scale: 0-10 Numeric Is Patient Pain Free? Yes WC - Visit Discharge Discharge Condition Stable Ambulatory Status Ambulatory Transportation Private Auto Accompanied by family member Assessment/Plan Assessment/Plan (1) Non-pressure chronic ulcer of unspecified part of right lower leg with fat layer exposed: CODE(S): L97.912 - Non-pressure chronic ulcer of unspecified part of right lower leg with fat layer exposed PLAN: Patient was examined and evaluated. All findings were discussed with the patient. All questions were answered to the patient's satisfaction. The patient's bilateral lower extremity venous ulcerations are now healed. The patient will continue to wear compression stockings to the bilateral lower extremity. He was dispensed new Tubigrip's in clinic today. He was also given a prescription to go to [facility] to be sized and fitted for 20 to 30 mmHg compression stockings. Educated to the patient that if his wounds do open up he is to begin treatment with Santyl and moist gauze as previous followed by compression stockings. Patient was understanding this. Patient will follow-up to the wound care clinic as needed. Follow-up at the wound care center with Dr. Carrington in 1 week. (2) Non-pressure ulcer of left lower extremity with fat layer exposed: CODE(S): L97.922 - Non-pressure chronic ulcer of unspecified part of left lower leg with fat layer exposed (3) Chronic venous insufficiency: CODE(S): I87.2 - Venous insufficiency (chronic) (peripheral)
== END 2023-12-03 16:06 | disposition home or self-care (01) ==
LOC: WC 10:26
PROVIDERS: Referring Provider Surgery Vascular Surgery; Visit Provider Podiatrist Foot & Ankle Surgery
DX: Z09 Encounter for follow-up examination after completed treatment for conditions other than malignant neoplasm (principal); I83.93 Asymptomatic varicose veins of bilateral lower extremities
CPT/HCPCS: 99213; G0463